=== PATIENT | male | born 1930 | race African-American/Black ===

== ENCOUNTER 2017-03-01 23:03 | Inpatient (IN) | payer MEDICARE, MEDICAID ==
[~2017-03-01] VITALS: Ht 175.3 cm; Wt 68.9 kg
[2017-03-01 23:10] VITALS: BP 119/71
--- NOTE | 2017-03-02 00:02 | Emergency Room Report ---
History of Present Illness General Chief Complaint: Fever Source: Medical Record Present Illness HPI This is an 86-year-old male with multiple medical problem. [facility] a [facility]. He was brought in for chief complaint of fever and abdominal pain with nausea vomiting. Onset today. History is from the [facility] note. Patient has history of dementia so history is limited. He received Tylenol for his fever. No mention of diarrhea. Allergies: Coded Allergies: No Known Allergies (Unverified , 03/01/17) Patient History Past Medical History: see triage record, old chart reviewed Past Surgical History: other Pertinent Family History: none Social History: Denies: smoking Immunizations: other Reviewed Nursing Documentation: PMH: Agreed, PSxH: Agreed Nursing Documentation-PMH Hx Hypertension: Yes - Hyperlipidemia Review of Systems Constitutional: Reports: fever Gastrointestinal: Reports: abdominal pain, nausea, vomiting All Other Systems: limited - Secondary to dementia Physical Exam Vital Signs Date Time Temp Pulse Resp B/P (MAP) Pulse Ox O2 Delivery O2 Flow Rate FiO2 03/01/17 22:59 100.0 96 16 119/71 98 Room Air vitals with fever Sp02 EP Interpretation: reviewed, normal General Appearance: well appearing, no apparent distress, alert Head: normocephalic, atraumatic Eyes: bilateral eye PERRL, bilateral eye EOMI ENT: hearing grossly normal, normal pharynx Neck: full range of motion, supple, no meningismus Respiratory: chest non-tender, lungs clear, normal breath sounds Cardiovascular #1: regular rate, rhythm, no murmur Gastrointestinal: normal bowel sounds, non tender, no mass, no organomegaly, no bruit, non-distended Musculoskeletal: back normal, normal range of motion Neurologic: alert Psychiatric: mood/affect normal Skin: warm/dry Medical Decision Making Diagnostic Impression: Primary Impression: Fever Qualified Codes: R50.9 - Fever, unspecified Additional Impressions: SIRS (systemic inflammatory response syndrome) Proteinuria Qualified Codes: R80.9 - Proteinuria, unspecified ER Course Patient presents with a fever and systemic inflammatory response syndrome. No clear source but most likely urine. Initially urine is equivocal. I will go ahead and put him on antibiotics. Mental status. He is at baseline. No evidence of pneumonia, acute abdomen to name a few. Lab Results Impression labs unremarkable EKG Diagnostic Results Rate: normal Rhythm: NSR ST Segments: no acute changes Rhythm Strip Diag. Results Rhythm Strip Time: 00:01 EP Interpretation: yes Rate: 77 Rhythm: NSR, no PVC's, no ectopy Chest X-Ray Diagnostic Results Chest X-Ray Diagnostic Results : Chest X-Ray Ordered: Yes # of Views/Limited/Complete: 1 View Indication: Shortness of Breath EP Interpretation: Yes Interpretation: no consolidation, no effusion, no pneumothorax Impression: No acute disease Electronically Signed by: Electronically signed by Tejas Fagan MD CT/MRI/US Diagnostic Results CT/MRI/US Diagnostic Results : Imaging Test Ordered: CT abdomen and pelvis Impression Read by radiologist. No acute process. Last Vital Signs Date Time Temp Pulse Resp B/P (MAP) Pulse Ox O2 Delivery O2 Flow Rate FiO2 03/01/17 22:59 100.0 96 16 119/71 98 Room Air Status: improved Disposition: ADMITTED INPATIENT Condition: Serious TEJAS FAGAN M.D. Mar 02, 2017 00:02
[2017-03-02 00:03] LABS: BASOPHILS % (AUTO) 1.5 % (0.0-2.0); EOSINOPHILS % (AUTO) 2.7 % (0.0-3.0); HEMATOCRIT 43.3 % (42.0-52.0); HEMOGLOBIN 15.2 G/DL (14.2-18.0); MEAN CORPUSCULAR VOLUME 89 FL (80-99); MONOCYTES % (AUTO) 7.2 % (1.0-10.0); NEUTROPHILS % (AUTO) 56.6 % (45.0-75.0); PLATELET COUNT 319 K/UL (150-450); RED BLOOD COUNT 4.88 M/UL (4.70-6.10); RED CELL DISTRIBUTION WIDTH 13.1 % (11.6-14.8); WHITE BLOOD COUNT 11.3 K/UL (4.8-10.8)
[2017-03-02] MEDS ORDERED: MULTIVITAMINS1 EAC2 ORAL (00:15)
[2017-03-02] MEDS ORDERED: HEPARIN SO5000 UNIT2 SUBQ (00:15)
[2017-03-02] MEDS ORDERED: CLOPIDOGREL75 MG ORAL (00:15)
[2017-03-02] MEDS ORDERED: DEPAKOTE250 MG PO (00:15)
[2017-03-02] MEDS ORDERED: VANCOMYCIN1 GM/2502 IVPB (00:15)
[2017-03-02] MEDS ORDERED: ZOSYN 3.373.375 GM/1 IVPB (00:15)
[2017-03-02] MEDS ORDERED: ASPIR 8181 MG ORAL (00:15)
[2017-03-02] MEDS ORDERED: ALUM-MAG HYDRO360 ML PO (00:15)
[2017-03-02] MEDS ORDERED: PRAVASTATIN SOD20 M1 ORAL (00:15)
[2017-03-02] MEDS ORDERED: PANTOPRAZOLE SO40 MG ORAL (00:15)
[2017-03-02] MEDS ORDERED: DONEPEZIL HCL10 M2 ORAL (00:15)
[2017-03-02] MEDS ORDERED: TYLENOL EXTRA500 MG ORAL ×2 (00:15→05:55)
[2017-03-02] MEDS ORDERED: NAMENDA10 MG ORAL (00:15)
[2017-03-02] MEDS ORDERED: LORAZEPAM0.5 GM IV (00:15)
[2017-03-02] MEDS ORDERED: DOCUSATE SODIU100 MG ORAL (00:15)
[2017-03-02] MEDS ORDERED: ACETYLCYST200 MG/1 M ORAL (00:15)
[2017-03-02 00:30] VITALS: BP 119/48
[2017-03-02 00:43] LABS: BILIRUBIN, URINE 1+ (NEGATIVE); GLUCOSE, URINE (UA) NEGATIVE (NEGATIVE); KETONES,URINE 2+ (NEGATIVE); LEUKOCYTE ESTERASE ,URINE 1+ (NEGATIVE); NITRITE,URINE NEGATIVE (NEGATIVE); PH,URINE 5 (4.5-8.0); PROTEIN,URINE 3+ (NEGATIVE); UROBILINOGEN,URINE 1 MG/DL (0.0-1.0)
[2017-03-02 00:51] LABS: APPEARANCE,URINE SLIGHTLY CLOUDY; COLOR,URINE YELLOW
[2017-03-02] MEDS ORDERED: cefTRIAXone 1 GM in NS 55 ML IVPB ONE (01:45)
[2017-03-02 02:00] VITALS: BP 109/52
[2017-03-02 02:06] LABS: ALANINE AMINOTRANSFERASE 30 U/L (12-78); ALBUMIN 2.5 G/DL (3.4-5.0); ALBUMIN/GLOBULIN RATIO 0.5 (1.0-2.7); ALKALINE PHOSPHATASE 85 U/L (46-116); ANION GAP 11 mmol/L (5-15); ASPARTATE AMINO TRANSFERASE 21 U/L (15-37); BILIRUBIN,TOTAL 0.6 MG/DL (0.2-1.0); BLOOD UREA NITROGEN 1 mg/dL (7-18); CARBON DIOXIDE 26 MMOL/L (21-32); CHLORIDE 107 MMOL/L (98-107); CKMB < 0.5 NG/ML (0.0-3.6); CREATINE KINASE 28 U/L (26-308); CREATININE 1.8 MG/DL (0.55-1.30); POTASSIUM 4.1 MMOL/L (3.5-5.1); SODIUM 143 MMOL/L (136-145)
[2017-03-02 02:15] LABS: CALCIUM 9.4 MG/DL (8.5-10.1)
[2017-03-02 03:00] VITALS: BP 129/85
[2017-03-02] MEDS ORDERED: Acetaminophen 500mg (ES) tab ORAL PRN ×2 (04:45→08:00)
[2017-03-02] MEDS ORDERED: ACETAMINOPHEN325 M1 ORAL (05:55)
[2017-03-02] MEDS ORDERED: MILK OF MA400 MG/51 ORAL (05:57)
[2017-03-02] MEDS ORDERED: LORazepam 1mg tab ORAL PRN (07:45)
[2017-03-02] MEDS ORDERED: Milk of Magnesia 30ml Ud ORAL PRN ×2 (08:00)
[2017-03-02] MEDS ORDERED: Heparin 5000 units/ml inj SUBQ SCH (09:00)
[2017-03-02] MEDS: Docusate 100mg cap ORAL SCH ×2 (09:00→17:20)
[2017-03-02] MEDS ORDERED: Mylanta II UD 30ml ORAL PRN (09:00)
[2017-03-02] MEDS: Heparin 5000 units/ml inj SUBQ SCH ×2 (09:00→20:53)
[2017-03-02] MEDS: Donepezil 10mg tab ORAL SCH (09:00)
[2017-03-02] MEDS: Memantine 10mg tab ORAL SCH (09:00)
[2017-03-02] MEDS: Aspirin EC 81mg tab ORAL SCH (09:00)
--- NOTE | 2017-03-02 09:32 | Diagnostic Imaging Report ---
Indication: Abdominal pain Technique: Spiral acquisitions obtained through the abdomen and pelvis. No oral contrast utilized, per emergency room physician request No IV contrast utilized, per referring physician request.. Multiplanar reconstructions were generated. Total dose length product 630 mGycm. CTDIvol(s) 12 mGy. Dose reduction achieved using automated exposure control Comparison: None Findings: There is extensive colonic diverticulosis. No evidence of diverticulitis. Normal appendix. There is a lower mid abdominal small bowel small bowel anastomosis, associated loops are dilated. No other small bowel distention demonstrated. There is a broad-based umbilical or incisional hernia centrally. No free or loculated intraperitoneal air or fluid. Distal esophagus, stomach, duodenum are unremarkable. There is a small fat-containing left inguinal hernia. The gallbladder contains a gallstone. There is no biliary ductal dilatation. Lack of IV contrast limits assessment of the solid organs. The liver, pancreas, spleen, adrenals right kidney are unremarkable. Left kidney demonstrates a 2 mm nonobstructive upper pole calyceal calculus. No ureteral calculi. No retroperitoneal or mesenteric mass or adenopathy. No pelvic mass or adenopathy. The included lung bases demonstrate some basilar scarring. There are incompletely united subacute appearing left ninth and 10th rib fracture deformities. There are degenerative spondylosis changes. There are atherosclerotic vascular calcifications Impression: No acute abnormality Diverticulosis. No evidence of diverticulitis Evidence of prior small bowel surgery. Focal dilatation at the anastomosis, presumably due to focal altered motility related to the prior bowel resection Cholelithiasis Nonobstructive left upper pole intrarenal calyceal calculus Subacute incompletely healed left rib fractures Other findings as noted, including atherosclerosis, basilar pulmonary parenchymal scarring, degenerative spondylosis, midline incisional/umbilical fat-containing hernias, left inguinal fat-containing hernia This agrees with the preliminary interpretation provided overnight by [facility]. The CT scanner at [facility] is accredited by the [employer] and the scans are performed using protocols designed to limit radiation exposure to as low as reasonably achievable to attain images of sufficient resolution adequate for diagnostic evaluation.
--- NOTE | 2017-03-02 09:38 | Diagnostic Imaging Report ---
Indication: SOB Technique: One view of the chest Comparison: none Findings: Lungs and pleural spaces are clear. Heart size is normal Impression: No acute process
--- NOTE | 2017-03-02 09:38 | Diagnostic Imaging Report ---
Indication: SOB Technique: One view of the chest Comparison: none Findings: Lungs and pleural spaces are clear. Heart size is normal Impression: No acute process
--- NOTE | 2017-03-02 09:38 | Diagnostic Imaging Report ---
Indication: SOB Technique: One view of the chest Comparison: none Findings: Lungs and pleural spaces are clear. Heart size is normal Impression: No acute process
[2017-03-02 12:00] VITALS: BP 132/88
[2017-03-02 16:00] VITALS: BP 128/72
[2017-03-02 21:00] VITALS: BP 135/59
[2017-03-02] MEDS ORDERED: cefTRIAXone 1 GM in D5W 55 ML IVPB SCH (22:00)
--- NOTE | 2017-03-02 23:00 | History and Physical Report ---
DATE OF ADMISSION: 03/02/2017 CHIEF COMPLAINT: Fever. HISTORY OF PRESENT ILLNESS: This is an 86-year-old male, admitted from [facility]. The patient developed a fever in the senior living. 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 The patient just returned from another admission several weeks ago at [facility] where he had failure to thrive and poor oral intake. He was noted to have severe peripheral vascular disease and left lower extremity cellulitis. The patient underwent the angioplasty to his left femoral arterial system with good results. 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 3. Deafness. 4. Hyperlipidemia. MEDICATIONS: Tylenol p.r.n., baby aspirin, Plavix, Depakote, sodium docusate, Aricept, subcutaneous heparin, lorazepam p.r.n., magnesium oxide, Namenda, multivitamins, Protonix, Zosyn, pravastatin, and vancomycin. ALLERGIES: No known drug allergies. SOCIAL HISTORY: Unable to obtain secondary to mental status. FAMILY HISTORY: Unable to obtain secondary to mental status. REVIEW OF SYSTEMS: Unable to obtain secondary to mental status. PHYSICAL EXAMINATION: GENERAL: This is an elderly male, who is in no acute distress. VITAL SIGNS: Blood pressure 129/85, pulse 76 and regular, respirations 14, and temperature initially 100 degrees and later on today 98.7 degrees. HEENT: Head is normocephalic and atraumatic. Pupils are equal, round, and reactive to light and accommodation consensually. NECK: Supple. Trachea midline. There was no lymphadenopathy or thyromegaly. LUNGS: Clear to auscultation and percussion. HEART: Regular rate and rhythm without rubs, murmurs, or gallops. ABDOMEN: Soft and nontender. Bowel sounds were active. EXTREMITIES: No clubbing. He has bilateral lower extremity edema. NEUROLOGICAL: He is confused. He is extremely hard of hearing. There are no gross lateralizing signs. LABORATORY AND ANCILLARY DATA: White count 11,300, otherwise, within normal limits. Serum chemistry, creatinine 1.8. Albumin 2.5. Urinalysis, 3+ protein, otherwise unremarkable. ASSESSMENT: Fever, unknown etiology. Of note is that a CT scan of abdomen shows gallstones. PLAN: 1. Broad-spectrum IV antibiotics. 2. Rule out C. difficile colitis. 3. HIDA scan. 4. Consider ID consult. Jonathan Mendez M.D. DR: Aniya JOB#: [id number] CC:
--- NOTE | 2017-03-02 23:00 | History and Physical Report ---
DATE OF ADMISSION: 03/02/2017 CHIEF COMPLAINT: Fever. HISTORY OF PRESENT ILLNESS: This is an 86-year-old male, admitted from [facility]. The patient developed a fever in the correction. 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 The patient just returned from another admission several weeks ago at [facility] where he had failure to thrive and poor oral intake. He was noted to have severe peripheral vascular disease and left lower extremity cellulitis. The patient underwent the angioplasty to his left femoral arterial system with good results. 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 3. Deafness. 4. Hyperlipidemia. MEDICATIONS: Tylenol p.r.n., baby aspirin, Plavix, Depakote, sodium docusate, Aricept, subcutaneous heparin, lorazepam p.r.n., magnesium oxide, Namenda, multivitamins, Protonix, Zosyn, pravastatin, and vancomycin. ALLERGIES: No known drug allergies. SOCIAL HISTORY: Unable to obtain secondary to mental status. FAMILY HISTORY: Unable to obtain secondary to mental status. REVIEW OF SYSTEMS: Unable to obtain secondary to mental status. PHYSICAL EXAMINATION: GENERAL: This is an elderly male, who is in no acute distress. VITAL SIGNS: Blood pressure 129/85, pulse 76 and regular, respirations 14, and temperature initially 100 degrees and later on today 98.7 degrees. HEENT: Head is normocephalic and atraumatic. Pupils are equal, round, and reactive to light and accommodation consensually. NECK: Supple. Trachea midline. There was no lymphadenopathy or thyromegaly. LUNGS: Clear to auscultation and percussion. HEART: Regular rate and rhythm without rubs, murmurs, or gallops. ABDOMEN: Soft and nontender. Bowel sounds were active. EXTREMITIES: No clubbing. He has bilateral lower extremity edema. NEUROLOGICAL: He is confused. He is extremely hard of hearing. There are no gross lateralizing signs. LABORATORY AND ANCILLARY DATA: White count 11,300, otherwise, within normal limits. Serum chemistry, creatinine 1.8. Albumin 2.5. Urinalysis, 3+ protein, otherwise unremarkable. ASSESSMENT: Fever, unknown etiology. Of note is that a CT scan of abdomen shows gallstones. PLAN: 1. Broad-spectrum IV antibiotics. 2. Rule out C. difficile colitis. 3. HIDA scan. 4. Consider ID consult. Jonathan Mendez M.D. DR: Aniya JOB#: [id number] CC:
[2017-03-03] VITALS: BP 136/60
[2017-03-03 04:00] VITALS: BP 135/65
[2017-03-03 08:00] VITALS: BP 109/53
[2017-03-03] MEDS: Memantine 10mg tab ORAL SCH (08:13)
[2017-03-03] MEDS: Docusate 100mg cap ORAL SCH ×2 (08:14→17:31)
[2017-03-03] MEDS: Donepezil 10mg tab ORAL SCH (08:14)
[2017-03-03] MEDS: Aspirin EC 81mg tab ORAL SCH (08:14)
[2017-03-03] MEDS: Heparin 5000 units/ml inj SUBQ SCH ×2 (08:19→20:59)
[2017-03-03] MEDS ORDERED: Tubing IV Secondary IV ONE (09:34)
[2017-03-03] MEDS ORDERED: NS 275ml ONE (09:34)
[2017-03-03] MEDS ORDERED: Vancomycin 1250mg/D5W 250ml IVPB ONE (11:00)
--- NOTE | 2017-03-03 11:20 | Infectious Diseases Prog Note ---
Assessment/Plan Assessment/Plan Full consult dictated: A) 1) bilateral leg cellulitis - R > L 2) possible sepsis, sirs, leukocytosis and fevers 3) pmh noted 4) allergies - negative P) 1) vancomycin, cefepime 2) check labs, bc 3) thank you Subjective Allergies: Coded Allergies: No Known Allergies (Unverified , 03/01/17) Objective Vital Signs Last 24 Hour Vital Signs Date Time Temp Pulse Resp B/P (MAP) Pulse Ox O2 Delivery O2 Flow Rate FiO2 03/03/17 08:00 97.9 87 20 109/53 100 Room Air 03/03/17 04:00 97.9 90 20 135/65 99 Room Air 03/03/17 00:00 98.1 89 20 136/60 98 Room Air 03/02/17 21:00 98.4 93 20 135/59 99 Room Air 03/02/17 16:00 98.4 78 22 128/72 98 Room Air 03/02/17 12:00 98.4 82 20 132/88 98 Room Air Height (Feet): 5 Height (Inches): 9.00 Weight (Pounds): 152 Microbiology Date/Time Source Procedure Growth Status 03/01/17 23:45 Blood Blood Culture - Preliminary NO GROWTH AFTER 24 HOURS Resulted 03/01/17 23:30 Blood Blood Culture - Preliminary NO GROWTH AFTER 24 HOURS Resulted Current Medications Medications (Trade) Dose Ordered Sig/Pao Route PRN Reason Start Time Stop Time Status Last Admin Dose Admin Acetaminophen (Tylenol) 500 mg Q4H PRN ORAL Mild Pain (Pain Scale 1-3) 03/02/17 08:00 04/01/17 07:59 Acetaminophen (Tylenol) 650 mg Q4H PRN ORAL Moderate Pain/Temp > 100.5 03/02/17 08:00 04/01/17 07:59 Al Hydroxide/Mg Hydroxide (Mylanta II) 30 ml Q6H PRN ORAL DYSPEPSIA/GI DISTRESS 03/02/17 09:00 04/01/17 08:59 Aspirin (Ecotrin) 81 mg DAILY ORAL 03/02/17 09:00 04/01/17 08:59 03/03/17 08:14 Cefepime HCl 2 gm/ Dextrose 110 ml @ 220 mls/hr Q24H IVPB 03/03/17 10:30 03/10/17 10:29 Clopidogrel Bisulfate (Plavix) 75 mg DAILY ORAL 03/02/17 09:00 04/01/17 08:59 03/03/17 08:14 Divalproex Sodium (Depakote) 250 mg Q12HR ORAL 03/02/17 09:00 04/01/17 08:59 03/03/17 08:15 Docusate Sodium (Colace) 100 mg TWICE A DAY ORAL 03/02/17 09:00 04/01/17 08:59 03/03/17 08:14 Donepezil HCl (Aricept) 10 mg DAILY ORAL 03/02/17 09:00 04/01/17 08:59 03/03/17 08:14 Heparin Sodium (Porcine) (Heparin 5000 units/ml) 5,000 units EVERY 12 HOURS SUBQ 03/02/17 09:00 04/01/17 08:59 03/03/17 08:19 Lorazepam (Ativan) 1 mg Q6H PRN ORAL For Anxiety 03/02/17 07:45 03/09/17 07:44 Magnesium Hydroxide (Mom) 30 ml Q4H PRN ORAL CONSTIPATION 03/02/17 08:00 04/01/17 07:59 Memantine (Namenda) 10 mg DAILY ORAL 03/02/17 09:00 04/01/17 08:59 03/03/17 08:13 Multivitamins (Multivitamins) 1 tab DAILY ORAL 03/02/17 09:00 04/01/17 08:59 03/03/17 08:14 Pantoprazole (Protonix) 40 mg DAILY ORAL 03/02/17 09:00 04/01/17 08:59 03/03/17 08:14 Pravastatin Sodium (Pravachol) 10 mg BEDTIME ORAL 03/02/17 21:00 04/01/17 20:59 03/02/17 20:51 Vancomycin HCl (Vanco rx to dose) 1 ea DAILY PRN MISC Per rx protocol 03/03/17 09:15 04/02/17 09:14 Vancomycin HCl/ Dextrose 250 ml @ 166.667 mls/hr ONCE ONCE IVPB 03/03/17 11:00 03/03/17 12:29 ZITA PLASENCIA Mar 03, 2017 11:20
[2017-03-03 11:27] VITALS: BP 123/66
[2017-03-03] MEDS: Cefepime HCl 2 GM in D5W 110 ML IVPB SCH (11:30)
--- NOTE | 2017-03-03 13:06 | General Progress Note ---
Assessment/Plan Assessment/Plan B LE cellulitis. This is the source of infection. Podiadtry to advise re portal of entry. ID to advise. Subjective Allergies: Coded Allergies: No Known Allergies (Unverified , 03/01/17) Subjective Confused Objective Last 24 Hour Vital Signs Date Time Temp Pulse Resp B/P (MAP) Pulse Ox O2 Delivery O2 Flow Rate FiO2 03/03/17 11:27 97.9 82 20 123/66 100 Room Air 03/03/17 08:00 97.9 87 20 109/53 100 Room Air 03/03/17 04:00 97.9 90 20 135/65 99 Room Air 03/03/17 00:00 98.1 89 20 136/60 98 Room Air 03/02/17 21:00 98.4 93 20 135/59 99 Room Air 03/02/17 16:00 98.4 78 22 128/72 98 Room Air Height (Feet): 5 Height (Inches): 9.00 Weight (Pounds): 152 Objective CV RR Lungs CTA Abd SNT. Bs + E B Edema ++ cellulitis JON PURVIS Mar 03, 2017 13:06
[2017-03-03 16:00] VITALS: BP 134/64
--- NOTE | 2017-03-03 17:51 | General Progress Note ---
Progress Note Progress Note Patient seen and examined Consult dictated #[id number] LESLY AGUIRRE Mar 03, 2017 17:51
--- NOTE | 2017-03-03 17:51 | General Progress Note ---
Progress Note Progress Note Patient seen and examined Consult dictated #[id number] LESLY AGUIRRE Mar 03, 2017 17:51
--- NOTE | 2017-03-03 17:51 | General Progress Note ---
Progress Note Progress Note Patient seen and examined Consult dictated #[id number] LESLY AGUIRRE Mar 03, 2017 17:51
--- NOTE | 2017-03-03 18:35 | Cardiology Report ---
APPROVED REPORT EKG Measurement Heart [id number] [place] 142P78 [id number] Normal sinus rhythm Normal ECG
--- NOTE | 2017-03-03 18:35 | Cardiology Report ---
APPROVED REPORT EKG Measurement Heart [id number] 142P78 [id number] Normal sinus rhythm Normal ECG
--- NOTE | 2017-03-03 18:35 | Cardiology Report ---
APPROVED REPORT EKG Measurement Heart [id number] 142P78 [id number] Normal sinus rhythm Normal ECG
[2017-03-03 20:00] VITALS: BP 145/71
--- NOTE | 2017-03-03 20:15 | Consultation ---
DATE OF CONSULTATION: 03/02/2017 VASCULAR SURGERY CONSULTATION CONSULTING PHYSICIAN: Renato Vieira M.D. REFERRING PHYSICIAN: Jonathan Purvis M.D. REASON FOR CONSULTATION: Right lower extremity cellulitis. HISTORY OF PRESENT ILLNESS: This is an 86-year-old male who is well known to our vascular service. 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 The patient has undergone a successful left leg percutaneous revascularization last month with excellent results. The patient now presents to [facility] with right leg cellulitis and pain. The patient does have venous arterial insufficiency with history of stasis dermatitis as well as arterial occlusive disease. All the history is obtained from the medical records. The patient is demented and psychotic. PAST MEDICAL HISTORY: As above, history of hypertension, organic brain syndrome, psychosis, deafness, hyperlipidemia, mixed venous arterial insufficiency, and prior history of left leg percutaneous revascularization. MEDICATIONS: See attached MAR. ALLERGIES: No known drug allergies. SOCIAL HISTORY: Unobtainable. He is a long term resident. His power of transactional attorney is his sister and his granddaughter is nurse at [employer]. FAMILY HISTORY: Unremarkable. REVIEW OF SYSTEMS: Unobtainable due to altered mental status. PHYSICAL EXAMINATION: GENERAL: The patient is awake and alert, but confused. VITAL SIGNS: he is afebrile at 98. degrees, T-max is 100 degrees, heart rate 76, blood pressure 129/85, and respirations 16. NECK: He has palpable radial pulses. No carotid bruits. LUNGS: Clear to auscultation. HEART: Regular. ABDOMEN: Soft and nontender. EXTREMITIES: He has palpable femoral pulses, stronger left popliteal pulse, stronger left foot Doppler signals and palpable left DP pulse. Right foot is warm, has weaker Dopplers. He does have right lower extremity cellulitis in the anterior lower leg with some tenderness. There is no evidence of open ulceration. LABORATORY AND DIAGNOSTIC DATA: Revealed a WBC of 9.3. Creatinine is 1.8. IMPRESSION: 1. Right lower extremity cellulitis with history of mixed arteriovenous insufficiency with leukocytosis and low-grade fever. 2. History of dementia. 3. Psychosis. 4. Organic brain syndrome. 5. History of hypertension and renal failure. 6. Prior history of left leg successful percutaneous revascularization with resolution of symptoms. RECOMMENDATION: 1. Antibiotics per Infectious Disease service. 2. Continue DVT and decubitus precautions. 3. We will obtain lower extremity duplex. Once the patient is medically optimized and cleared, the patient will require contralateral right leg revascularization and angiography as well. The above is discussed at length with the patient's nurse. Renato Vieira M.D. DR: SIRIA JOB#: [id number] CC: Renato Vieira M.D.; Fax#: [phone] JONATHAN PURVIS M.D. ; FAX#: [phone] [facility]
--- NOTE | 2017-03-03 20:15 | Consultation ---
DATE OF CONSULTATION: 03/02/2017 VASCULAR SURGERY CONSULTATION CONSULTING PHYSICIAN: Renato Vieira M.D. REFERRING PHYSICIAN: Jonathan Purvis M.D. REASON FOR CONSULTATION: Right lower extremity cellulitis. HISTORY OF PRESENT ILLNESS: This is an 86-year-old male who is well known to our vascular service. 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 The patient has undergone a successful left leg percutaneous revascularization last month with excellent results. The patient now presents to [facility] with right leg cellulitis and pain. The patient does have venous arterial insufficiency with history of stasis dermatitis as well as arterial occlusive disease. All the history is obtained from the medical records. The patient is demented and psychotic. PAST MEDICAL HISTORY: As above, history of hypertension, organic brain syndrome, psychosis, deafness, hyperlipidemia, mixed venous arterial insufficiency, and prior history of left leg percutaneous revascularization. MEDICATIONS: See attached MAR. ALLERGIES: No known drug allergies. SOCIAL HISTORY: Unobtainable. He is a [facility] resident. His power of mergers and acquisitions attorney is his sister and his granddaughter is nurse at [employer]. FAMILY HISTORY: Unremarkable. REVIEW OF SYSTEMS: Unobtainable due to altered mental status. PHYSICAL EXAMINATION: GENERAL: The patient is awake and alert, but confused. VITAL SIGNS: he is afebrile at 98. degrees, T-max is 100 degrees, heart rate 76, blood pressure 129/85, and respirations 16. NECK: He has palpable radial pulses. No carotid bruits. LUNGS: Clear to auscultation. HEART: Regular. ABDOMEN: Soft and nontender. EXTREMITIES: He has palpable femoral pulses, stronger left popliteal pulse, stronger left foot Doppler signals and palpable left DP pulse. Right foot is warm, has weaker Dopplers. He does have right lower extremity cellulitis in the anterior lower leg with some tenderness. There is no evidence of open ulceration. LABORATORY AND DIAGNOSTIC DATA: Revealed a WBC of 9.3. Creatinine is 1.8. IMPRESSION: 1. Right lower extremity cellulitis with history of mixed arteriovenous insufficiency with leukocytosis and low-grade fever. 2. History of dementia. 3. Psychosis. 4. Organic brain syndrome. 5. History of hypertension and renal failure. 6. Prior history of left leg successful percutaneous revascularization with resolution of symptoms. RECOMMENDATION: 1. Antibiotics per Infectious Disease service. 2. Continue DVT and decubitus precautions. 3. We will obtain lower extremity duplex. Once the patient is medically optimized and cleared, the patient will require contralateral right leg revascularization and angiography as well. The above is discussed at length with the patient's nurse. Renato Vieira M.D. DR: SIRIA JOB#: [id number] CC: Renato Vieira M.D.; Fax#: [phone] JONATHAN PURVIS M.D. ; FAX#: [phone] [facility] [facility]ITAL[facility]
--- NOTE | 2017-03-03 20:15 | Consultation ---
DATE OF CONSULTATION: 03/02/2017 VASCULAR SURGERY CONSULTATION CONSULTING PHYSICIAN: Renato Vieira M.D. REFERRING PHYSICIAN: Jonathan Purvis M.D. REASON FOR CONSULTATION: Right lower extremity cellulitis. HISTORY OF PRESENT ILLNESS: This is an 86-year-old male who is well known to our vascular service. 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 The patient has undergone a successful left leg percutaneous revascularization last month with excellent results. The patient now presents to [facility] with right leg cellulitis and pain. The patient does have venous arterial insufficiency with history of stasis dermatitis as well as arterial occlusive disease. All the history is obtained from the medical records. The patient is demented and psychotic. PAST MEDICAL HISTORY: As above, history of hypertension, organic brain syndrome, psychosis, deafness, hyperlipidemia, mixed venous arterial insufficiency, and prior history of left leg percutaneous revascularization. MEDICATIONS: See attached MAR. ALLERGIES: No known drug allergies. SOCIAL HISTORY: Unobtainable. He is a care home resident. His power of sports attorney is his sister and his granddaughter is nurse at [employer]. FAMILY HISTORY: Unremarkable. REVIEW OF SYSTEMS: Unobtainable due to altered mental status. PHYSICAL EXAMINATION: GENERAL: The patient is awake and alert, but confused. VITAL SIGNS: he is afebrile at 98. degrees, T-max is 100 degrees, heart rate 76, blood pressure 129/85, and respirations 16. NECK: He has palpable radial pulses. No carotid bruits. LUNGS: Clear to auscultation. HEART: Regular. ABDOMEN: Soft and nontender. EXTREMITIES: He has palpable femoral pulses, stronger left popliteal pulse, stronger left foot Doppler signals and palpable left DP pulse. Right foot is warm, has weaker Dopplers. He does have right lower extremity cellulitis in the anterior lower leg with some tenderness. There is no evidence of open ulceration. LABORATORY AND DIAGNOSTIC DATA: Revealed a WBC of 9.3. Creatinine is 1.8. IMPRESSION: 1. Right lower extremity cellulitis with history of mixed arteriovenous insufficiency with leukocytosis and low-grade fever. 2. History of dementia. 3. Psychosis. 4. Organic brain syndrome. 5. History of hypertension and renal failure. 6. Prior history of left leg successful percutaneous revascularization with resolution of symptoms. RECOMMENDATION: 1. Antibiotics per Infectious Disease service. 2. Continue DVT and decubitus precautions. 3. We will obtain lower extremity duplex. Once the patient is medically optimized and cleared, the patient will require contralateral right leg revascularization and angiography as well. The above is discussed at length with the patient's nurse. Renato Vieira M.D. DR: SIRIA JOB#: [id number] CC: Renato Vieira M.D.; Fax#: [phone] JONATHAN PURVIS M.D. ; FAX#: [phone] [facility]
--- NOTE | 2017-03-03 21:45 | Consultation ---
DATE OF CONSULTATION: 03/03/2017 INFECTIOUS DISEASES CONSULTATION ATTENDING PHYSICIAN: Jonathan Mendez M.D. REASON FOR CONSULTATION: Bilateral leg cellulitis, right greater than left, possible sepsis and SIRS, fevers, and leukocytosis. The patient's chief complaint coming into the hospital is sepsis. HISTORY OF PRESENT ILLNESS: This is an 86-year-old male who has a history of organic brain syndrome, is hard of hearing, and the patient is not a very good historian. The patient presents from an outside facility, who lives in half-way with poor oral intake and failure to thrive. The patient was noted to have leukocytosis and fevers and elevated heart rate over 90 and respiratory rate of 20, possible sepsis. Clinically, the patient has bilateral leg cellulitis, especially on the right leg. Infectious Diseases consultation requested. The patient was placed on vancomycin and cefepime. The patient does also have an elevated creatinine. MAR was noted. Orders noted. Notes were reviewed. Urinalysis only had 0-2 white blood cells, and chest x-ray showed no acute process. Also, the patient had CT scan of the abdomen and pelvis, which showed diverticulosis, but no diverticulitis, history of cholelithiasis. PAST MEDICAL HISTORY: The patient's medical history includes the following. The patient has a past medical history of organic brain syndrome, history of hypertension, and hypertensive cardiovascular disease. He has deafness, hyperlipidemia. He has elevated creatinine at this time. He has possible acute kidney injury versus chronic kidney disease. No history of diabetes mentioned. Also, hypertension and hyperlipidemia. Please see past medical history in medical order. MEDICATIONS: Upon reviewing the MAR, he is on the following medications. He is on vancomycin and cefepime. He is on pravastatin. He is on heparin. He is on aspirin. He is on Plavix, divalproex, Colace, Aricept, Mylanta. He is on Namenda, multivitamins, Protonix, Tylenol, magnesium hydroxide, and Ativan. ALLERGIES: No known drug or antibiotic allergies. SOCIAL HISTORY: Negative for smoking, alcohol, or drug abuse. FAMILY HISTORY: Noncontributory. Negative for exposure to tuberculosis or cancer. REVIEW OF SYSTEMS: CONSTITUTIONAL: Denies weakness or fatigue. He is hard of hearing. He has organic brain syndrome. He did come in with fevers. No chills noted at this time. HEAD AND NECK: No head pain. No neck pain. No neck stiffness. CARDIAC: No chest pain. GASTROINTESTINAL: No nausea, vomiting, or diarrhea. GENITOURINARY: No Zamarripa. PULMONARY: No significant congestion, short of breath, secretions, or hemoptysis. SKIN: No rash or itching. EXTREMITIES: He has bilateral leg swelling and pain. NEUROLOGIC: No seizures. PHYSICAL EXAMINATION: GENERAL: Alert and responsive. He is hard of hearing. VITAL SIGNS: Temperature is 97.9 degrees, pulse rate 87, respiratory rate 20, blood pressure 109/53, respiratory rate has been as high as 22, pulse rate has been as high as 96, and temperature has been high as 100 degrees. HEAD AND NECK: Oral exam, no thrush. Eye exam, no icterus. Normocephalic. No facial droop. NECK: Supple. No neck stiffness. HEART: Regular. No obvious gallop or murmur. LUNGS: Clear bilaterally. No rhonchi or rales. ABDOMEN: Soft. Positive bowel sounds. Nontender. SKIN: No rash. MUSCULOSKELETAL: No effusion. Bilateral legs have redness and warmth and swelling, especially on the right versus left. PERIPHERAL VASCULAR: No cyanosis. GENITOURINARY: No Zamarripa. LINES: IV sites are without phlebitis. No CVA tenderness. NEUROLOGIC: Awake, alert, and responsive. LABORATORY AND DIAGNOSTIC DATA: Creatinine 1.8. White count 11.3, hemoglobin 15.2. UA has 0-2 white blood cells. Chest x-ray shows no pneumonia. CT scan of the abdomen and pelvis showed diverticulosis without diverticulitis. No abscess mentioned. Cultures are pending including blood cultures. ASSESSMENT AND PLAN: 1. The patient has bilateral leg cellulitis on exam. Clinically, he has warmth and redness and swelling of both legs, especially the right. The patient has possible sepsis secondary to leg cellulitis with an elevated white count, fevers, and also systemic inflammatory response syndrome criteria. Continue vancomycin and cefepime. Check blood cultures and follow labs. Watch creatinine closely on vancomycin. Continue vancomycin and cefepime for bilateral leg cellulitis for now. 2. Elevated creatinine. 3. Hemoglobin stable. 4. Deafness. 5. Organic brain syndrome. 6. Hypertension. 7. Hypertensive heart disease. 8. Hyperlipidemia. 9. No allergies. 10. Social history negative. 11. MAR was noted. 12. Case discussed with RN. 13. Family history is noncontributory. 14. Continue treatment per Dr. Mendez and consultants. 15. Skin care protocol. 16. Notes and records were noted. 17. Orders were entered and noted. Griffin Kamara M.D. DR: JAIRO JOB#: [id number] CC:
[2017-03-04] VITALS: BP 138/69
[2017-03-04 04:00] VITALS: BP 129/64
--- NOTE | 2017-03-04 08:15 | Consultation ---
Consult Note Assessment/Plan A/ 1) Cellulitis RLE 2) PVD 3) Edema 4) Skin dystrophy P/ 1) No open wounds noted. No surgical intervention 2) Seen by [facility] surgery. Recs appreciated 3) Compression contraindicated at this time 4) Will prescribe Econazole cream daily to RLE to help with skin dystrophy possible tinea infection Thank you Dr Mendez. Edmond Ayers DPM Mar 04, 2017 08:15
--- NOTE | 2017-03-04 08:15 | Consultation ---
Consult Note Assessment/Plan A/ 1) Cellulitis RLE 2) PVD 3) Edema 4) Skin dystrophy P/ 1) No open wounds noted. No surgical intervention 2) Seen by [facility] surgery. Recs appreciated 3) Compression contraindicated at this time 4) Will prescribe Econazole cream daily to RLE to help with skin dystrophy possible tinea infection Thank you Dr Mendez. Edmond Ayers DPM Mar 04, 2017 08:15
--- NOTE | 2017-03-04 08:15 | Consultation ---
Consult Note Assessment/Plan A/ 1) Cellulitis RLE 2) PVD 3) Edema 4) Skin dystrophy P/ 1) No open wounds noted. No surgical intervention 2) Seen by [facility] surgery. Recs appreciated 3) Compression contraindicated at this time 4) Will prescribe Econazole cream daily to RLE to help with skin dystrophy possible tinea infection Thank you Dr Mendez. Edmond Ayers DPM Mar 04, 2017 08:15
[2017-03-04 08:17] VITALS: BP 119/63
[2017-03-04] MEDS ORDERED: Morphine Sulfate 4mg/ml Inj IVP PRN (09:00)
[2017-03-04] MEDS: Donepezil 10mg tab ORAL SCH (11:13)
[2017-03-04] MEDS: Docusate 100mg cap ORAL SCH ×2 (11:13→17:58)
[2017-03-04] MEDS: Aspirin EC 81mg tab ORAL SCH (11:14)
[2017-03-04] MEDS: Memantine 10mg tab ORAL SCH (11:14)
[2017-03-04 11:15] LABS: BASOPHILS % (AUTO) 1.1 % (0.0-2.0); EOSINOPHILS % (AUTO) 13.8 % (0.0-3.0); HEMATOCRIT 31.8 % (42.0-52.0); HEMOGLOBIN 10.3 G/DL (14.2-18.0); LYMPHOCYTES % (AUTO) 23.5 % (20.0-45.0); MEAN CORPUSCULAR VOLUME 92 FL (80-99); MONOCYTES % (AUTO) 8.1 % (1.0-10.0); NEUTROPHILS % (AUTO) 53.4 % (45.0-75.0); PLATELET COUNT 192 K/UL (150-450); RED BLOOD COUNT 3.44 M/UL (4.70-6.10); RED CELL DISTRIBUTION WIDTH 14.4 % (11.6-14.8); WHITE BLOOD COUNT 4.7 K/UL (4.8-10.8)
--- NOTE | 2017-03-04 11:16 | Diagnostic Imaging Report ---
Indication: ABD DIST Technique: IV administration 5.4 mCi 99M technetium mebrofenin. Serial images obtained over the abdomen Comparison: Reference made to CT scan 03/01/2017 Findings: Prompt hepatic tracer uptake. Extrahepatic bile ducts are visible at 10 minutes. Tracer begins superior the gallbladder at 19 minutes. Tracer seen in the duodenum at 28 minutes Impression: Negative. No evidence of cystic duct or common bile duct obstruction
[2017-03-04] MEDS: Heparin 5000 units/ml inj SUBQ SCH ×2 (11:17→20:36)
--- NOTE | 2017-03-04 11:18 | Diagnostic Imaging Report ---
APPROVED REPORT CPT Code: 94609 Symptoms Claudication : Bilaterally BILATERAL: Common femoral artery waveform analysis is within normal limits at rest. Color flow duplex sonography reveals patency of the superficial femoral, popliteal, and tibial arteries, there is no evidence of stenosis or occlusion within these segments. Doppler tibial artery waveform analysis is within normal limits, bilaterally. There is no evidence of significant arterial occlusive disease, bilaterally.
--- NOTE | 2017-03-04 11:18 | Diagnostic Imaging Report ---
APPROVED REPORT CPT Code: 38628 Symptoms Claudication : Bilaterally BILATERAL: Common femoral artery waveform analysis is within normal limits at rest. Color flow duplex sonography reveals patency of the superficial femoral, popliteal, and tibial arteries, there is no evidence of stenosis or occlusion within these segments. Doppler tibial artery waveform analysis is within normal limits, bilaterally. There is no evidence of significant arterial occlusive disease, bilaterally.
--- NOTE | 2017-03-04 11:18 | Diagnostic Imaging Report ---
APPROVED REPORT CPT Code: 86091 Symptoms Claudication : Bilaterally BILATERAL: Common femoral artery waveform analysis is within normal limits at rest. Color flow duplex sonography reveals patency of the superficial femoral, popliteal, and tibial arteries, there is no evidence of stenosis or occlusion within these segments. Doppler tibial artery waveform analysis is within normal limits, bilaterally. There is no evidence of significant arterial occlusive disease, bilaterally.
[2017-03-04] MEDS: Econazole 1% Cream 15gm TOPIC SCH (11:19)
--- NOTE | 2017-03-04 11:19 | Diagnostic Imaging Report ---
APPROVED REPORT CPT Code: 98217 Present Symptoms Lower Extremity Pain: Bilateral BILATERAL: Imaging reveals a patent deep venous system bilaterally. There is no evidence of thrombus within the femoral, popliteal or tibial segments. The greater saphenous veins are also within normal limits. Doppler indicates normal spontaneous flow within these segments.
--- NOTE | 2017-03-04 11:19 | Diagnostic Imaging Report ---
APPROVED REPORT CPT Code: 29743 Present Symptoms Lower Extremity Pain: Bilateral BILATERAL: Imaging reveals a patent deep venous system bilaterally. There is no evidence of thrombus within the femoral, popliteal or tibial segments. The greater saphenous veins are also within normal limits. Doppler indicates normal spontaneous flow within these segments.
--- NOTE | 2017-03-04 11:19 | Diagnostic Imaging Report ---
APPROVED REPORT CPT Code: 98180 Present Symptoms Lower Extremity Pain: Bilateral BILATERAL: Imaging reveals a patent deep venous system bilaterally. There is no evidence of thrombus within the femoral, popliteal or tibial segments. The greater saphenous veins are also within normal limits. Doppler indicates normal spontaneous flow within these segments.
[2017-03-04] MEDS: Cefepime HCl 2 GM in D5W 110 ML IVPB SCH (11:21)
[2017-03-04 11:45] LABS: ANION GAP 4 mmol/L (5-15); BLOOD UREA NITROGEN 8 mg/dL (7-18); CALCIUM 8.8 MG/DL (8.5-10.1); CARBON DIOXIDE 29 MMOL/L (21-32); CHLORIDE 103 MMOL/L (98-107); CREATININE 1.2 MG/DL (0.55-1.30); POTASSIUM 3.9 MMOL/L (3.5-5.1); SODIUM 136 MMOL/L (136-145)
[2017-03-04 11:52] VITALS: BP 136/58
[2017-03-04] MEDS ORDERED: Vancomycin 1gm/D5W 275ml IVPB ONE ×2 (13:00)
--- NOTE | 2017-03-04 13:00 | General Progress Note ---
Assessment/Plan Assessment/Plan B LE cellulitis. This is the source of infection. On IV Abx. Seen by Vasc Sx, ID and Podiatry. Stable for DC to SNF. Subjective Allergies: Coded Allergies: No Known Allergies (Unverified , 03/01/17) Subjective Confused Objective Last 24 Hour Vital Signs Date Time Temp Pulse Resp B/P (MAP) Pulse Ox O2 Delivery O2 Flow Rate FiO2 03/04/17 11:52 97.8 71 20 136/58 96 Room Air 03/04/17 08:17 98.2 65 20 119/63 96 Room Air 03/04/17 04:00 97.7 72 18 129/64 99 Room Air 03/04/17 00:00 97.6 83 18 138/69 100 Room Air 03/03/17 20:00 97.5 83 18 145/71 100 Room Air 03/03/17 16:00 97.5 84 18 134/64 100 Room Air Intake and Output 03/04/17 03/05/17 19:00 07:00 # Voids 1 Laboratory Tests 03/04/17 10:50: Sodium Level 136, Potassium Level 3.9, Chloride Level 103, Carbon Dioxide Level 29, Anion Gap 4L, Blood Urea Nitrogen 8, Creatinine 1.2, Estimat Glomerular Filtration Rate , Glucose Level 86, Calcium Level 8.8 03/04/17 11:00: White Blood Count 4.7L, Red Blood Count 3.44L, Hemoglobin 10.3L, Hematocrit 31.8L, Mean Corpuscular Volume 92, Mean Corpuscular Hemoglobin 30.0, Mean Corpuscular Hemoglobin Concent 32.4, Red Cell Distribution Width 14.4, Platelet Count 192, Mean Platelet Volume 7.7, Neutrophils (%) (Auto) 53.4, Lymphocytes (% ) (Auto) 23.5, Monocytes (%) (Auto) 8.1, Eosinophils (%) (Auto) 13.8H, Basophils (%) (Auto) 1.1, Random Vancomycin Level 4.8 Height (Feet): 5 Height (Inches): 9.00 Weight (Pounds): 152 Objective CV RR Lungs CTA Abd SNT. Bs + E B Edema ++ cellulitis JON PURVIS Mar 04, 2017 13:00
[2017-03-04 16:03] VITALS: BP 125/65
--- NOTE | 2017-03-04 18:00 | Consultation ---
DATE OF CONSULTATION: 03/04/2017 REQUESTING PHYSICIAN: Jonathan Mendez M.D. CONSULTING PHYSICIAN: Edmond Lovell D.P.M. REASON FOR CONSULTATION: Recurrent cellulitis, right lower extremity. HISTORY OF PRESENT ILLNESS: The patient is an 86-year-old male who was admitted to [facility] on 03/02/2017 for sepsis. The patient has a history of recurrent cellulitis of the lower extremities with [facility] The patient has dementia and has difficulty hearing. Responses are difficult to ascertain. PAST MEDICAL HISTORY: Significant for organic brain syndrome, hypertensive cardiovascular disease, deafness, hyperlipidemia, Alzheimer's dementia, dyslipidemia, and peripheral vascular disease. ALLERGIES: He has no known drug allergies. MEDICATIONS: Per [facility] and include morphine, cefepime, vancomycin, heparin for DVT prophylaxis, 81 mg of aspirin, and Plavix 75 mg daily. FAMILY HISTORY: Unremarkable. SOCIAL HISTORY: The patient resides in a penitentiary facility. REVIEW OF SYSTEMS: Difficult to obtain secondary to mental status. PHYSICAL EXAMINATION: VITAL SIGNS: Temperature is 97.7, pulse is 72, respirations 18, blood pressure is 129/64, and saturating 99% on room air. EXTREMITIES: Lower extremity physical exam, vascular, nonpalpable pedal pulses noted bilaterally. Feet are equally warm. There is pitting edema noted on the right lower extremity, none noted on the left. No cyanosis is noted. DERMATOLOGICAL: There are no open sores or lesions noted bilaterally. Interdigital spaces are clear bilaterally. There is dystrophic change of the skin noted on the right lower extremity. Again, no open sores or lesions are noted. Some discoloration is noted as well. No malodor is noted. MUSCULOSKELETAL: No gross deformities are noted. NEUROLOGICAL: The patient's gross neurological exam is unremarkable. IMAGING DATA: No lower extremity imaging is noted on this admission. LABORATORY DATA: White blood cell count is 11.3, hemoglobin and hematocrit is 15.2 and 43.3, and platelet count is 319. Potassium is 4.1, BUN is , creatinine is 1.8. Lactic acid is 1.70. Albumin is 2.5. INR is 1.0. ASSESSMENT: 1. Cellulitis, right lower extremity. 2. Peripheral vascular disease. 3. Edema. 4. Skin dystrophy. PLAN: 1. No open wounds noted. No surgical intervention is indicated at this time. 2. The patient has been seen by Vascular Surgery. Recommendations are appreciated. 3. Compression therapy at this point is contraindicated at this time. 4. We will prescribe a Conazol cream daily to the right lower extremity to help with skin dystrophy and possible tinea infection. Thank you for the courtesy of this consultation. Edmond Lovell D.P.M. DR: Jagdish JOB#: [id number] CC: Jonathan Mendez M.D.; Fax#: [phone] EDMOND LOVELL D.P.M. ; FAX#: [phone]
--- NOTE | 2017-03-04 18:00 | Consultation ---
DATE OF CONSULTATION: 03/04/2017 REQUESTING PHYSICIAN: Jonathan Mendez M.D. CONSULTING PHYSICIAN: Edmond Lovell D.P.M. REASON FOR CONSULTATION: Recurrent cellulitis, right lower extremity. HISTORY OF PRESENT ILLNESS: The patient is an 86-year-old male who was admitted to [facility] on 03/02/2017 for sepsis. The patient has a history of recurrent cellulitis of the lower extremities with [facility]. The patient has dementia and has difficulty hearing. Responses are difficult to ascertain. PAST MEDICAL HISTORY: Significant for organic brain syndrome, hypertensive cardiovascular disease, deafness, hyperlipidemia, Alzheimer's dementia, dyslipidemia, and peripheral vascular disease. ALLERGIES: He has no known drug allergies. MEDICATIONS: Per [facility] and include morphine, cefepime, vancomycin, heparin for DVT prophylaxis, 81 mg of aspirin, and Plavix 75 mg daily. FAMILY HISTORY: Unremarkable. SOCIAL HISTORY: The patient resides in a longterm facility. REVIEW OF SYSTEMS: Difficult to obtain secondary to mental status. PHYSICAL EXAMINATION: VITAL SIGNS: Temperature is 97.7, pulse is 72, respirations 18, blood pressure is 129/64, and saturating 99% on room air. EXTREMITIES: Lower extremity physical exam, vascular, nonpalpable pedal pulses noted bilaterally. Feet are equally warm. There is pitting edema noted on the right lower extremity, none noted on the left. No cyanosis is noted. DERMATOLOGICAL: There are no open sores or lesions noted bilaterally. Interdigital spaces are clear bilaterally. There is dystrophic change of the skin noted on the right lower extremity. Again, no open sores or lesions are noted. Some discoloration is noted as well. No malodor is noted. MUSCULOSKELETAL: No gross deformities are noted. NEUROLOGICAL: The patient's gross neurological exam is unremarkable. IMAGING DATA: No lower extremity imaging is noted on this admission. LABORATORY DATA: White blood cell count is 11.3, hemoglobin and hematocrit is 15.2 and 43.3, and platelet count is 319. Potassium is 4.1, BUN is , creatinine is 1.8. Lactic acid is 1.70. Albumin is 2.5. INR is 1.0. ASSESSMENT: 1. Cellulitis, right lower extremity. 2. Peripheral vascular disease. 3. Edema. 4. Skin dystrophy. PLAN: 1. No open wounds noted. No surgical intervention is indicated at this time. 2. The patient has been seen by Vascular Surgery. Recommendations are appreciated. 3. Compression therapy at this point is contraindicated at this time. 4. We will prescribe a Conazol cream daily to the right lower extremity to help with skin dystrophy and possible tinea infection. Thank you for the courtesy of this consultation. Edmond Lovell D.P.M. DR: Jagdish JOB#: [id number] CC: Jonathan Mendez M.D.; Fax#: [phone] EDMOND LOVELL D.P.M. ; FAX#: [phone]
--- NOTE | 2017-03-04 18:00 | Consultation ---
DATE OF CONSULTATION: 03/04/2017 REQUESTING PHYSICIAN: Jonathan Mendez M.D. CONSULTING PHYSICIAN: Edmond Lovell D.P.M. REASON FOR CONSULTATION: Recurrent cellulitis, right lower extremity. HISTORY OF PRESENT ILLNESS: The patient is an 86-year-old male who was admitted to [facility] on 03/02/2017 for sepsis. The patient has a history of recurrent cellulitis of the lower extremities with [facility]. The patient has dementia and has difficulty hearing. Responses are difficult to ascertain. PAST MEDICAL HISTORY: Significant for organic brain syndrome, hypertensive cardiovascular disease, deafness, hyperlipidemia, Alzheimer's dementia, dyslipidemia, and peripheral vascular disease. ALLERGIES: He has no known drug allergies. MEDICATIONS: Per [facility] and include morphine, cefepime, vancomycin, heparin for DVT prophylaxis, 81 mg of aspirin, and Plavix 75 mg daily. FAMILY HISTORY: Unremarkable. SOCIAL HISTORY: The patient resides in a detention facility. REVIEW OF SYSTEMS: Difficult to obtain secondary to mental status. PHYSICAL EXAMINATION: VITAL SIGNS: Temperature is 97.7, pulse is 72, respirations 18, blood pressure is 129/64, and saturating 99% on room air. EXTREMITIES: Lower extremity physical exam, vascular, nonpalpable pedal pulses noted bilaterally. Feet are equally warm. There is pitting edema noted on the right lower extremity, none noted on the left. No cyanosis is noted. DERMATOLOGICAL: There are no open sores or lesions noted bilaterally. Interdigital spaces are clear bilaterally. There is dystrophic change of the skin noted on the right lower extremity. Again, no open sores or lesions are noted. Some discoloration is noted as well. No malodor is noted. MUSCULOSKELETAL: No gross deformities are noted. NEUROLOGICAL: The patient's gross neurological exam is unremarkable. IMAGING DATA: No lower extremity imaging is noted on this admission. LABORATORY DATA: White blood cell count is 11.3, hemoglobin and hematocrit is 15.2 and 43.3, and platelet count is 319. Potassium is 4.1, BUN is , creatinine is 1.8. Lactic acid is 1.70. Albumin is 2.5. INR is 1.0. ASSESSMENT: 1. Cellulitis, right lower extremity. 2. Peripheral vascular disease. 3. Edema. 4. Skin dystrophy. PLAN: 1. No open wounds noted. No surgical intervention is indicated at this time. 2. The patient has been seen by Vascular Surgery. Recommendations are appreciated. 3. Compression therapy at this point is contraindicated at this time. 4. We will prescribe a Conazol cream daily to the right lower extremity to help with skin dystrophy and possible tinea infection. Thank you for the courtesy of this consultation. Edmond Lovell D.P.M. DR: Jagdish JOB#: [id number] CC: Jonathan Mendez M.D.; Fax#: [phone] EDMOND LOVELL D.P.M. ; FAX#: [phone]
[2017-03-04 20:16] VITALS: BP 133/64
[2017-03-04] MEDS: Depakote 125mg Sprinkles ORAL SCH (20:42)
[2017-03-05 00:13] VITALS: BP 136/75
[2017-03-05 04:53] VITALS: BP 127/69
[2017-03-05 08:00] VITALS: BP 120/70
--- NOTE | 2017-03-05 09:19 | Infectious Diseases Prog Note ---
Assessment/Plan Assessment/Plan ASSESSMENT AND PLAN: 1. bilateral leg cellulitis, leg edema, arteriovenous insufficiency, sepsis, fevers, leukocytosis - clinically better, less cellulitis, sepsis better - continue vancomycin and cefepime for 7 days more - d/w vascular surgery and we agree with iv abx because of underlying leg pathology - d/w Dr. Mendez and RN 2. Elevated creatinine - improved 3. Hemoglobin stable. 4. Deafness. 5. Organic brain syndrome, hx psychosis 6. Hypertension. 7. Hypertensive heart disease. 8. Hyperlipidemia. 9. No allergies. 10. Social history negative. 11. MAR was noted. 12. Case discussed with RN. 13. Family history is noncontributory. 14. Continue treatment per Dr. Mendez and consultants. 15. Skin care protocol. 16. Notes and records were noted. 17. Orders were entered and noted. Subjective Constitutional: Reports: fatigue, Denies: fever HEENT: Denies: dysphagia, congestion Respiratory: Denies: shortness of breath Cardiovascular: Denies: chest pain Gastrointestinal/Abdominal: Denies: nausea, vomiting, diarrhea Genitourinary: Denies: dysuria, hematuria, frequency Neurologic: Denies: headache, numbness Psychiatric: Denies: depression Skin: Denies: rash Hematologic: Denies: bleeding Musculoskeletal: Denies: pain Allergies: Coded Allergies: No Known Allergies (Unverified , 03/01/17) Objective Vital Signs Last 24 Hour Vital Signs Date Time Temp Pulse Resp B/P (MAP) Pulse Ox O2 Delivery O2 Flow Rate FiO2 03/05/17 08:00 96.4 83 17 120/70 100 Room Air 03/05/17 04:53 96.7 82 18 127/69 100 Room Air 03/05/17 00:13 96.8 86 20 136/75 100 Room Air 03/04/17 20:16 96.5 69 20 133/64 100 Room Air 03/04/17 16:03 98.0 69 20 125/65 96 Room Air 03/04/17 11:52 97.8 71 20 136/58 96 Room Air Height (Feet): 5 Height (Inches): 9.00 Weight (Pounds): 152 General Appearance: no acute distress HEENT: normocephalic, atraumatic, anicteric, mucous membranes moist, EOMI, pharynx normal, supple, no JVD Respiratory/Chest: lungs clear, normal breath sounds, no respiratory distress, no accessory muscle use Cardiovascular: normal rate, regular rhythm, no gallop/murmur, no JVD Abdomen: normal bowel sounds, soft, non tender, no organomegaly, non distended Genitourinary: other - no warren Extremities: no cyanosis, other - + edema, less warmth and redness, r>l leg cellulitis Skin: no rash, other Neurologic/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, abnormal gait, responsive Lymphatic: no neck adenopathy Musculoskeletal: no effusion, other - no septic arthritis Objective hida - negative (report noted) ct - abdomen and pelvis - nad (report noted) chest x-ray - nad (report noted) Microbiology Date/Time Source Procedure Growth Status 03/01/17 23:45 Blood Blood Culture - Preliminary NO GROWTH AFTER 72 HOURS Resulted Laboratory Tests Test 03/04/17 10:50 03/04/17 11:00 Sodium Level 136 MMOL/L (136-145) Potassium Level 3.9 MMOL/L (3.5-5.1) Chloride Level 103 MMOL/L (98-107) Carbon Dioxide Level 29 MMOL/L (21-32) Anion Gap 4 mmol/L (5-15) L Blood Urea Nitrogen 8 mg/dL (7-18) Creatinine 1.2 MG/DL (0.55-1.30) Estimat Glomerular Filtration Rate mL/min (>60) Glucose Level 86 MG/DL (74-106) Calcium Level 8.8 MG/DL (8.5-10.1) White Blood Count 4.7 K/UL (4.8-10.8) L Red Blood Count 3.44 M/UL (4.70-6.10) L Hemoglobin 10.3 G/DL (14.2-18.0) L Hematocrit 31.8 % (42.0-52.0) L Mean Corpuscular Volume 92 FL (80-99) Mean Corpuscular Hemoglobin 30.0 PG (27.0-31.0) Mean Corpuscular Hemoglobin Concent 32.4 G/DL (32.0-36.0) Red Cell Distribution Width 14.4 % (11.6-14.8) Platelet Count 192 K/UL (150-450) Mean Platelet Volume 7.7 FL (6.5-10.1) Neutrophils (%) (Auto) 53.4 % (45.0-75.0) Lymphocytes (%) (Auto) 23.5 % (20.0-45.0) Monocytes (%) (Auto) 8.1 % (1.0-10.0) Eosinophils (%) (Auto) 13.8 % (0.0-3.0) H Basophils (%) (Auto) 1.1 % (0.0-2.0) Random Vancomycin Level 4.8 ug/mL Current Medications Medications (Trade) Dose Ordered Sig/Pao Route PRN Reason Start Time Stop Time Status Last Admin Dose Admin Acetaminophen (Tylenol) 500 mg Q4H PRN ORAL Mild Pain (Pain Scale 1-3) 03/02/17 08:00 04/01/17 07:59 Acetaminophen (Tylenol) 650 mg Q4H PRN ORAL Moderate Pain/Temp > 100.5 03/02/17 08:00 04/01/17 07:59 Al Hydroxide/Mg Hydroxide (Mylanta II) 30 ml Q6H PRN ORAL DYSPEPSIA/GI DISTRESS 03/02/17 09:00 04/01/17 08:59 Aspirin (Ecotrin) 81 mg DAILY ORAL 03/02/17 09:00 04/01/17 08:59 03/04/17 11:14 Cefepime HCl 2 gm/ Dextrose 110 ml @ 220 mls/hr Q24H IVPB 03/03/17 10:30 03/10/17 10:29 03/04/17 11:21 Clopidogrel Bisulfate (Plavix) 75 mg DAILY ORAL 03/02/17 09:00 04/01/17 08:59 03/04/17 11:13 Divalproex Sodium (Depakote Sprinkles) 250 mg Q12HR ORAL 03/04/17 21:00 04/03/17 20:59 03/04/17 20:42 Docusate Sodium (Colace) 100 mg TWICE A DAY ORAL 03/02/17 09:00 04/01/17 08:59 03/04/17 17:58 Donepezil HCl (Aricept) 10 mg DAILY ORAL 03/02/17 09:00 04/01/17 08:59 03/04/17 11:13 Econazole Nitrate (Spectazole) 1 applic DAILY TOPIC 03/04/17 09:00 04/03/17 08:59 03/04/17 11:19 Heparin Sodium (Porcine) (Heparin 5000 units/ml) 5,000 units EVERY 12 HOURS SUBQ 03/02/17 09:00 04/01/17 08:59 03/03/17 20:59 Lorazepam (Ativan) 1 mg Q6H PRN ORAL For Anxiety 03/02/17 07:45 03/09/17 07:44 03/04/17 08:35 Magnesium Hydroxide (Mom) 30 ml Q4H PRN ORAL CONSTIPATION 03/02/17 08:00 04/01/17 07:59 Memantine (Namenda) 10 mg DAILY ORAL 03/02/17 09:00 04/01/17 08:59 03/04/17 11:14 Multivitamins (Multivitamins) 1 tab DAILY ORAL 03/02/17 09:00 04/01/17 08:59 03/04/17 11:14 Pantoprazole (Protonix) 40 mg DAILY ORAL 03/02/17 09:00 04/01/17 08:59 03/04/17 11:13 Pravastatin Sodium (Pravachol) 10 mg BEDTIME ORAL 03/02/17 21:00 04/01/17 20:59 03/04/17 20:41 Vancomycin HCl (Vanco rx to dose) 1 ea DAILY PRN MISC Per rx protocol 03/03/17 09:15 04/02/17 09:14 Vancomycin/Sodium Chloride 250 ml @ 166.667 mls/hr Q24H IVPB 03/05/17 13:00 03/10/17 12:59 ZITA PLASENCIA Mar 05, 2017 09:19
[2017-03-05] MEDS: Aspirin EC 81mg tab ORAL SCH (09:27)
[2017-03-05] MEDS: Memantine 10mg tab ORAL SCH (09:29)
[2017-03-05] MEDS: Donepezil 10mg tab ORAL SCH (09:31)
[2017-03-05] MEDS: Depakote 125mg Sprinkles ORAL SCH (09:37)
[2017-03-05] MEDS: Docusate 100mg cap ORAL SCH (09:42)
[2017-03-05] MEDS: Econazole 1% Cream 15gm TOPIC SCH (09:44)
[2017-03-05] MEDS: Heparin 5000 units/ml inj SUBQ SCH (09:45)
[2017-03-05] MEDS: Cefepime HCl 2 GM in D5W 110 ML IVPB SCH (10:35)
[2017-03-05] MEDS ORDERED: LORazepam Inj 2mg/ml 1ml IV ONE (12:00)
[2017-03-05] MEDS ORDERED: DiphenhydrAMINE 50mg/ml Inj IM ONE (12:00)
[2017-03-05] MEDS ORDERED: Haloperidol 5mg/ml Inj IM ONE (12:00)
--- NOTE | 2017-03-05 12:50 | General Progress Note ---
Assessment/Plan Assessment/Plan B LE cellulitis. This is the source of infection. On IV Abx. Seen by Vasc Sx, ID and Podiatry.DC held. Going now. Stable for DC to SNF. Subjective Allergies: Coded Allergies: No Known Allergies (Unverified , 03/01/17) Subjective Confused Objective Last 24 Hour Vital Signs Date Time Temp Pulse Resp B/P (MAP) Pulse Ox O2 Delivery O2 Flow Rate FiO2 03/05/17 08:00 96.4 83 17 120/70 100 Room Air 03/05/17 04:53 96.7 82 18 127/69 100 Room Air 03/05/17 00:13 96.8 86 20 136/75 100 Room Air 03/04/17 20:16 96.5 69 20 133/64 100 Room Air 03/04/17 16:03 98.0 69 20 125/65 96 Room Air Intake and Output 03/05/17 03/06/17 18:59 06:59 Intake Total 150 ml Balance 150 ml Intake Oral 150 ml # Voids 1 Height (Feet): 5 Height (Inches): 9.00 Weight (Pounds): 152 Objective CV RR Lungs CTA Abd SNT. Bs + E B Edema ++ cellulitis JON PURVIS Mar 05, 2017 12:50
[2017-03-05] MEDS ORDERED: Vancomycin 750mg/NS 250ml IVPB SCH (13:00)
--- NOTE | 2017-03-05 14:00 | Vascular Surgery Progress Note ---
Subjective Subjective All noted No new complaints Better on abx per ID Confused baseline Objective Objective Last 24 Hour Vital Signs Date Time Temp Pulse Resp B/P (MAP) Pulse Ox O2 Delivery O2 Flow Rate FiO2 03/05/17 08:00 96.4 83 17 120/70 100 Room Air 03/05/17 04:53 96.7 82 18 127/69 100 Room Air 03/05/17 00:13 96.8 86 20 136/75 100 Room Air 03/04/17 20:16 96.5 69 20 133/64 100 Room Air 03/04/17 16:03 98.0 69 20 125/65 96 Room Air Intake and Output 03/05/17 03/06/17 19:00 07:00 Intake Total 150 ml Balance 150 ml Intake Oral 150 ml # Voids 1 Height (Feet): 5 Height (Inches): 9.00 Weight (Pounds): 152 Objective cvs rrr lungs cta abd soft nontender 2+ femorals intact popliteals 3+ left DP palpable pulses Left leg c/d/i no ulcers Right leg mixed venous stasis changes absent right foot pulses Assessment/Plan Assessment IMPRESSION: 1. Right lower extremity cellulitis with history of mixed arteriovenous insufficiency with leukocytosis and low-grade fever----- improving on abx per ID 2. History of dementia. 3. Psychosis. 4. Organic brain syndrome. 5. History of hypertension and renal failure. 6. Prior history of left leg successful percutaneous revascularization with resolution of symptoms--- has palpable left DP pulses with no left leg ulcers Plan RECOMMENDATION: 1. Antibiotics per Infectious Disease service. 2. Continue DVT and decubitus precautions. 3. The patient will require contralateral right leg revascularization and angiography as outpatient-- will be scheduled & coordinated with PMD and family d/w pt's nurse d/w pmd and LESLY RIZZO Mar 05, 2017 14:00
[2017-03-05] MEDS ORDERED: Docusate 100mg/10ml Liq ORAL SCH (18:00)
--- NOTE | 2017-03-05 23:10 | Consultation ---
History of Present Illness General Date patient seen: Mar 04, 2017 Chief Complaint: Fever Present Illness [facility] 86[facility] Allergies: Coded Allergies: No Known Allergies (Unverified , 03/01/17) Medication History Scheduled Aspirin* (Aspir 81*), 81 MG ORAL DAILY, (Reported) Clopidogrel* (Clopidogrel*), 75 MG ORAL DAILY, (Reported) Divalproex Sodium* (Depakote*), 250 MG PO Q12HR, (Reported) Docusate Sodium* (Docusate Sodium*), 100 MG ORAL TWICE A DAY, (Reported) Donepezil Hcl* (Donepezil Hcl*), 10 MG ORAL DAILY, (Reported) Heparin Sod (Porcine) (Heparin Sodium*), 5,000 UNITS SUBQ EVERY 12 HOURS, ( Reported) Lorazepam (Lorazepam), 0.5 GM IV Q6HR, (Reported) Mag Hydrox/Al Hydrox/Simeth (Alum-Mag Hydroxide-Simeth Liq), 360 ML PO FOUR TIMES A DAY, (Reported) Magnesium Hydroxide* (Milk Of Magnesia*), 30 ML ORAL HS, (Reported) Memantine Hcl* (Namenda*), 10 MG ORAL DAILY, (Reported) Multivitamins* (Multivitamins*), 1 TAB ORAL DAILY, (Reported) Pantoprazole* (Pantoprazole*), 40 MG ORAL DAILY, (Reported) Ovatqpyyszpv-Gtpi-Enzrnhxl,Iso (Zosyn 3.375 Gm Pre Mix-Bag), 3.375 GM IVPB EVERY 8 HOURS, (Reported) Pravastatin Sod* (Pravastatin Sod*), 10 MG ORAL BEDTIME, (Reported) Vancomycin Hcl/D5w (Vancomycin-D5w 1 G/250 Ml), 1 GM IVPB Q24H, (Reported) Scheduled PRN Acetaminophen* (Tylenol Extra Strength*), 650 MG ORAL Q4HR PRN for Mild Pain/ Temp > 100.5, (Reported) Discontinued Medications Acetaminophen* (Tylenol Extra Strength*), 500 MG ORAL EVERY 4 HOURS PRN for Moderate Pain (Pain Scale 4-6), (Reported) Discontinued Reason: MD discontinued med Acetaminophen* (Acetaminophen 325MG Tablet*), 650 MG ORAL Q4H PRN for Mild Pain/ Temp > 100.5, (Reported) Discontinued Reason: discontinued med Acetylcysteine* (Acetylcysteine*), 600 MG ORAL TWICE A DAY, (Reported) Discontinued Reason: MD discontinued med Patient History History Provided By: Patient, Medical Record, PMD Healthcare decision maker SISTERRAFAT, Resuscitation status Full Code Advanced Directive on File No Review of Systems Psychiatric: Reports: prior hx, anxiety, depressed feelings, emotional problems Physical Exam General Appearance: confused, severe distress, agitated Neurologic: alert, responsive, depressed affect Last 24 Hour Vital Signs Date Time Temp Pulse Resp B/P (MAP) Pulse Ox O2 Delivery O2 Flow Rate FiO2 03/05/17 08:00 96.4 83 17 120/70 100 Room Air 03/05/17 04:53 96.7 82 18 127/69 100 Room Air 03/05/17 00:13 96.8 86 20 136/75 100 Room Air Intake and Output 03/05/17 03/06/17 19:00 07:00 Intake Total 150 ml Balance 150 ml Intake Oral 150 ml # Voids 1 Height (Feet): 5 Height (Inches): 9.00 Weight (Pounds): 152 Assessment/Plan Status: stable Assessment/Plan the pt was hitting staff when they were trying to change him he received a cocktail Odette Lang M.D. Mar 05, 2017 23:10
--- NOTE | 2017-03-05 23:10 | Consultation ---
History of Present Illness General Date patient seen: Mar 04, 2017 Chief Complaint: Fever Present Illness [facility] 86[facility]. Allergies: Coded Allergies: No Known Allergies (Unverified , 03/01/17) Medication History Scheduled Aspirin* (Aspir 81*), 81 MG ORAL DAILY, (Reported) Clopidogrel* (Clopidogrel*), 75 MG ORAL DAILY, (Reported) Divalproex Sodium* (Depakote*), 250 MG PO Q12HR, (Reported) Docusate Sodium* (Docusate Sodium*), 100 MG ORAL TWICE A DAY, (Reported) Donepezil Hcl* (Donepezil Hcl*), 10 MG ORAL DAILY, (Reported) Heparin Sod (Porcine) (Heparin Sodium*), 5,000 UNITS SUBQ EVERY 12 HOURS, ( Reported) Lorazepam (Lorazepam), 0.5 GM IV Q6HR, (Reported) Mag Hydrox/Al Hydrox/Simeth (Alum-Mag Hydroxide-Simeth Liq), 360 ML PO FOUR TIMES A DAY, (Reported) Magnesium Hydroxide* (Milk Of Magnesia*), 30 ML ORAL HS, (Reported) Memantine Hcl* (Namenda*), 10 MG ORAL DAILY, (Reported) Multivitamins* (Multivitamins*), 1 TAB ORAL DAILY, (Reported) Pantoprazole* (Pantoprazole*), 40 MG ORAL DAILY, (Reported) Itzjrrybjoay-Foob-Lltmajwy,Iso (Zosyn 3.375 Gm Pre Mix-Bag), 3.375 GM IVPB EVERY 8 HOURS, (Reported) Pravastatin Sod* (Pravastatin Sod*), 10 MG ORAL BEDTIME, (Reported) Vancomycin Hcl/D5w (Vancomycin-D5w 1 G/250 Ml), 1 GM IVPB Q24H, (Reported) Scheduled PRN Acetaminophen* (Tylenol Extra Strength*), 650 MG ORAL Q4HR PRN for Mild Pain/ Temp > 100.5, (Reported) Discontinued Medications Acetaminophen* (Tylenol Extra Strength*), 500 MG ORAL EVERY 4 HOURS PRN for Moderate Pain (Pain Scale 4-6), (Reported) Discontinued Reason: MD discontinued med Acetaminophen* (Acetaminophen 325MG Tablet*), 650 MG ORAL Q4H PRN for Mild Pain/ Temp > 100.5, (Reported) Discontinued Reason: discontinued med Acetylcysteine* (Acetylcysteine*), 600 MG ORAL TWICE A DAY, (Reported) Discontinued Reason: MD discontinued med Patient History History Provided By: Patient, Medical Record, PMD Healthcare decision maker SISTERRAFAT, Resuscitation status Full Code Advanced Directive on File No Review of Systems Psychiatric: Reports: prior hx, anxiety, depressed feelings, emotional problems Physical Exam General Appearance: confused, severe distress, agitated Neurologic: alert, responsive, depressed affect Last 24 Hour Vital Signs Date Time Temp Pulse Resp B/P (MAP) Pulse Ox O2 Delivery O2 Flow Rate FiO2 03/05/17 08:00 96.4 83 17 120/70 100 Room Air 03/05/17 04:53 96.7 82 18 127/69 100 Room Air 03/05/17 00:13 96.8 86 20 136/75 100 Room Air Intake and Output 03/05/17 03/06/17 19:00 07:00 Intake Total 150 ml Balance 150 ml Intake Oral 150 ml # Voids 1 Height (Feet): 5 Height (Inches): 9.00 Weight (Pounds): 152 Assessment/Plan Status: stable Assessment/Plan the pt was hitting staff when they were trying to change him he received a cocktail Oedtte Lang M.D. Mar 05, 2017 23:10
--- NOTE | 2017-03-05 23:10 | Consultation ---
History of Present Illness General Date patient seen: Mar 04, 2017 Chief Complaint: Fever Present Illness [facility] 86[facility] Allergies: Coded Allergies: No Known Allergies (Unverified , 03/01/17) Medication History Scheduled Aspirin* (Aspir 81*), 81 MG ORAL DAILY, (Reported) Clopidogrel* (Clopidogrel*), 75 MG ORAL DAILY, (Reported) Divalproex Sodium* (Depakote*), 250 MG PO Q12HR, (Reported) Docusate Sodium* (Docusate Sodium*), 100 MG ORAL TWICE A DAY, (Reported) Donepezil Hcl* (Donepezil Hcl*), 10 MG ORAL DAILY, (Reported) Heparin Sod (Porcine) (Heparin Sodium*), 5,000 UNITS SUBQ EVERY 12 HOURS, ( Reported) Lorazepam (Lorazepam), 0.5 GM IV Q6HR, (Reported) Mag Hydrox/Al Hydrox/Simeth (Alum-Mag Hydroxide-Simeth Liq), 360 ML PO FOUR TIMES A DAY, (Reported) Magnesium Hydroxide* (Milk Of Magnesia*), 30 ML ORAL HS, (Reported) Memantine Hcl* (Namenda*), 10 MG ORAL DAILY, (Reported) Multivitamins* (Multivitamins*), 1 TAB ORAL DAILY, (Reported) Pantoprazole* (Pantoprazole*), 40 MG ORAL DAILY, (Reported) Upzzqxwbjzpc-Xlbe-Rprxnqrh,Iso (Zosyn 3.375 Gm Pre Mix-Bag), 3.375 GM IVPB EVERY 8 HOURS, (Reported) Pravastatin Sod* (Pravastatin Sod*), 10 MG ORAL BEDTIME, (Reported) Vancomycin Hcl/D5w (Vancomycin-D5w 1 G/250 Ml), 1 GM IVPB Q24H, (Reported) Scheduled PRN Acetaminophen* (Tylenol Extra Strength*), 650 MG ORAL Q4HR PRN for Mild Pain/ Temp > 100.5, (Reported) Discontinued Medications Acetaminophen* (Tylenol Extra Strength*), 500 MG ORAL EVERY 4 HOURS PRN for Moderate Pain (Pain Scale 4-6), (Reported) Discontinued Reason: MD discontinued med Acetaminophen* (Acetaminophen 325MG Tablet*), 650 MG ORAL Q4H PRN for Mild Pain/ Temp > 100.5, (Reported) Discontinued Reason: discontinued med Acetylcysteine* (Acetylcysteine*), 600 MG ORAL TWICE A DAY, (Reported) Discontinued Reason: MD discontinued med Patient History History Provided By: Patient, Medical Record, PMD Healthcare decision maker SISTERRAFAT, Resuscitation status Full Code Advanced Directive on File No Review of Systems Psychiatric: Reports: prior hx, anxiety, depressed feelings, emotional problems Physical Exam General Appearance: confused, severe distress, agitated Neurologic: alert, responsive, depressed affect Last 24 Hour Vital Signs Date Time Temp Pulse Resp B/P (MAP) Pulse Ox O2 Delivery O2 Flow Rate FiO2 03/05/17 08:00 96.4 83 17 120/70 100 Room Air 03/05/17 04:53 96.7 82 18 127/69 100 Room Air 03/05/17 00:13 96.8 86 20 136/75 100 Room Air Intake and Output 03/05/17 03/06/17 19:00 07:00 Intake Total 150 ml Balance 150 ml Intake Oral 150 ml # Voids 1 Height (Feet): 5 Height (Inches): 9.00 Weight (Pounds): 152 Assessment/Plan Status: stable Assessment/Plan the pt was hitting staff when they were trying to change him he received a cocktail Odette Lang M.D. Mar 05, 2017 23:10
[2017-03-06] MEDS ORDERED: Aspirin Baby 81mg ORAL SCH (09:00)
--- NOTE | 2017-03-07 13:13 | Discharge Summary ---
Discharge Summary Hospital Course Date of Admission Mar 02, 2017 at 01:34 Date of Discharge Mar 05, 2017 at 13:10 Admitting Diagnosis sepsis HPI Krishna Rinaldi is a 86 year old male who was admitted on Mar 02, 2017 at 01:34 for Sepsis Hospital Course [id number] Discharge Discharge Disposition Patient was discharged to SNF/Subacute Facility(03) Discharge Diagnoses: Maria Eugenia Bey NP Mar 07, 2017 13:13
--- NOTE | 2017-03-07 13:13 | Discharge Summary ---
Discharge Summary Hospital Course Date of Admission Mar 02, 2017 at 01:34 Date of Discharge Mar 05, 2017 at 13:10 Admitting Diagnosis sepsis HPI Krishna Rinaldi is a 86 year old male who was admitted on Mar 02, 2017 at 01:34 for Sepsis Hospital Course [id number] Discharge Discharge Disposition Patient was discharged to SNF/Subacute Facility(03) Discharge Diagnoses: Maria Eugenia Bey NP Mar 07, 2017 13:13
--- NOTE | 2017-03-07 13:13 | Discharge Summary ---
Discharge Summary Hospital Course Date of Admission Mar 02, 2017 at 01:34 Date of Discharge Mar 05, 2017 at 13:10 Admitting Diagnosis sepsis HPI Krishna Rinaldi is a 86 year old male who was admitted on Mar 02, 2017 at 01:34 for Sepsis Hospital Course [id number] Discharge Discharge Disposition Patient was discharged to SNF/Subacute Facility(03) Discharge Diagnoses: Maria Eugenia Bye NP Mar 07, 2017 13:13
--- NOTE | 2017-03-07 18:16 | General Progress Note ---
Assessment/Plan Status: stable Subjective Date patient seen: Mar 05, 2017 Neurologic/Psychiatric: Reports: anxiety, depressed Allergies: Coded Allergies: No Known Allergies (Unverified , 03/01/17) Subjective the pt was angry and agitated confused and illogical Objective Height (Feet): 5 Height (Inches): 9.00 Weight (Pounds): 152 General Appearance: no apparent distress, alert, confused Neurologic: alert, responsive, normal mood/affect, disoriented Odette Lang M.D. Mar 07, 2017 18:16
--- NOTE | 2017-03-07 23:00 | Discharge Summary 2 SIG ---
DATE OF ADMISSION: 03/02/2017 DATE OF DISCHARGE: 03/05/2017 CONSULTANTS: 1. Renato Vieira M.D. 2. Griffin Kamara M.D. 3. Edmond Ayers D.P.M. BRIEF HOSPITAL COURSE: The patient is an 86-year-old male, admitted from [facility]. The patient had fever in the care home. He had a recent hospitalization several weeks ago at [facility] where he had failure to thrive and poor oral intake. He was noted to have severe peripheral vascular disease of the left lower extremity. He underwent angioplasty to his left femoral arterial system with good results. He then presented to ED with fever. Blood work showed WBC of 11.3. Creatinine was 1.8. Albumin was 2.5. Chest x-ray done showed no acute process. CT of the abdomen and pelvis showed gallstones. He had leukocytosis and fever with elevated heart rate over 90. He was placed on vancomycin and cefepime. He was seen by Dr Vieira. He had warmth and redness with swelling on both lower lower extremities, right more than left. He was seen by Electromechanical Technologist. The patient did not have any open wounds. There was no surgical intervention indicated. He had palpable femoral pulses, stronger left popliteal pulse, stronger left foot Doppler signals, and palpable left dorsalis pedis pulse. Right foot is warm and has a weaker Doppler. Venous duplex of lower extremity showed patent deep venous system bilaterally with no evidence of thrombus. Arterial scan showed no evidence of significant arterial occlusive disease bilaterally. He underwent HIDA scan. Results were negative with no evidence of cystic duct or common bile duct obstruction. Bilateral lower extremity was source of infection. He was eventually discharged back to SNF to continue antibiotic treatment. FINAL DIAGNOSES: 1. Bilateral lower extremity cellulitis. 2. Prior left leg percutaneous revascularization. 3. Organic brain syndrome. 4. Dementia. 5. Hypertension. 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 7. Sepsis, fever, and leukocytosis. 8. Hypertensive heart disease. 9. Hyperlipidemia. 10. Leg edema with skin dystrophy. DISPOSITION: The patient was discharged back to [facility]. DISCHARGE MEDICATIONS: Refer to medication list. Continue with Zosyn and vancomycin. Jonathan Mendez M.D. I have been assigned to dictate discharge summary on this account and I was not involved in the patient's management. Maria Eugenia Bey N.P. DR: BISHOP JOB#: [id number] CC: WILY
--- NOTE | 2017-03-07 23:00 | Discharge Summary 2 SIG ---
DATE OF ADMISSION: 03/02/2017 DATE OF DISCHARGE: 03/05/2017 CONSULTANTS: 1. Renato Vieira M.D. 2. Griffin Kamara M.D. 3. Edmond Ayers D.P.M. BRIEF HOSPITAL COURSE: The patient is an 86-year-old male, admitted from [facility]. The patient had fever in the senior living. He had a recent hospitalization several weeks ago at [facility] where he had failure to thrive and poor oral intake. He was noted to have severe peripheral vascular disease of the left lower extremity. He underwent angioplasty to his left femoral arterial system with good results. He then presented to ED with fever. Blood work showed WBC of 11.3. Creatinine was 1.8. Albumin was 2.5. Chest x-ray done showed no acute process. CT of the abdomen and pelvis showed gallstones. He had leukocytosis and fever with elevated heart rate over 90. He was placed on vancomycin and cefepime. He was seen by Dr Vieira. He had warmth and redness with swelling on both lower lower extremities, right more than left. He was seen by Glass Inspector. The patient did not have any open wounds. There was no surgical intervention indicated. He had palpable femoral pulses, stronger left popliteal pulse, stronger left foot Doppler signals, and palpable left dorsalis pedis pulse. Right foot is warm and has a weaker Doppler. Venous duplex of lower extremity showed patent deep venous system bilaterally with no evidence of thrombus. Arterial scan showed no evidence of significant arterial occlusive disease bilaterally. He underwent HIDA scan. Results were negative with no evidence of cystic duct or common bile duct obstruction. Bilateral lower extremity was source of infection. He was eventually discharged back to SNF to continue antibiotic treatment. FINAL DIAGNOSES: 1. Bilateral lower extremity cellulitis. 2. Prior left leg percutaneous revascularization. 3. Organic brain syndrome. 4. Dementia. 5. Hypertension. 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 7. Sepsis, fever, and leukocytosis. 8. Hypertensive heart disease. 9. Hyperlipidemia. 10. Leg edema with skin dystrophy. DISPOSITION: The patient was discharged back to [facility]. DISCHARGE MEDICATIONS: Refer to medication list. Continue with Zosyn and vancomycin. Jonathan Mendez M.D. I have been assigned to dictate discharge summary on this account and I was not involved in the patient's management. Maria Eugenia Bey N.P. DR: BISHOP JOB#: [id number] CC: WILY
--- NOTE | 2017-03-07 23:00 | Discharge Summary 2 SIG ---
DATE OF ADMISSION: 03/02/2017 DATE OF DISCHARGE: 03/05/2017 CONSULTANTS: 1. Renato Vieira M.D. 2. Griffin Kamara M.D. 3. Edmond Ayers D.P.M. BRIEF HOSPITAL COURSE: The patient is an 86-year-old male, admitted from [facility]. The patient had fever in the shelter. He had a recent hospitalization several weeks ago at [facility] where he had failure to thrive and poor oral intake. He was noted to have severe peripheral vascular disease of the left lower extremity. He underwent angioplasty to his left femoral arterial system with good results. He then presented to ED with fever. Blood work showed WBC of 11.3. Creatinine was 1.8. Albumin was 2.5. Chest x-ray done showed no acute process. CT of the abdomen and pelvis showed gallstones. He had leukocytosis and fever with elevated heart rate over 90. He was placed on vancomycin and cefepime. He was seen by Dr Vieira. He had warmth and redness with swelling on both lower lower extremities, right more than left. He was seen by Supervisor Finishing Department. The patient did not have any open wounds. There was no surgical intervention indicated. He had palpable femoral pulses, stronger left popliteal pulse, stronger left foot Doppler signals, and palpable left dorsalis pedis pulse. Right foot is warm and has a weaker Doppler. Venous duplex of lower extremity showed patent deep venous system bilaterally with no evidence of thrombus. Arterial scan showed no evidence of significant arterial occlusive disease bilaterally. He underwent HIDA scan. Results were negative with no evidence of cystic duct or common bile duct obstruction. Bilateral lower extremity was source of infection. He was eventually discharged back to SNF to continue antibiotic treatment. FINAL DIAGNOSES: 1. Bilateral lower extremity cellulitis. 2. Prior left leg percutaneous revascularization. 3. Organic brain syndrome. 4. Dementia. 5. Hypertension. 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 7. Sepsis, fever, and leukocytosis. 8. Hypertensive heart disease. 9. Hyperlipidemia. 10. Leg edema with skin dystrophy. DISPOSITION: The patient was discharged back to [facility]. DISCHARGE MEDICATIONS: Refer to medication list. Continue with Zosyn and vancomycin. Jonathan Mendez M.D. I have been assigned to dictate discharge summary on this account and I was not involved in the patient's management. Maria Eugenia Bey N.P. DR: BISHOP JOB#: [id number] CC: WILY
== END 2017-03-05 13:10 | DRG 872 ==
LOC: EDBD 23:03 → EMR 23:55 → 4W 03-02 01:34 → EDBEDREQ 03-02 02:19
DX: A41.9 Sepsis, unspecified organism (principal); F03.90 Unspecified dementia, unspecified severity, without behavioral disturbance, psychotic disturbance, mood disturbance, and anxiety; I11.9 Hypertensive heart disease without heart failure; L03.115 Cellulitis of right lower limb; L03.116 Cellulitis of left lower limb; H91.90 Unspecified hearing loss, unspecified ear; I73.9 Peripheral vascular disease, unspecified; E78.5 Hyperlipidemia, unspecified; L98.8 Other specified disorders of the skin and subcutaneous tissue; Z79.02 Long term (current) use of antithrombotics/antiplatelets
CPT/HCPCS: 36415; 71010; 74176; 78266; 80048; 80053; 80202; 81003; 82550; 82553; 83605; 84484; 85025; 85610; 85730; 87040; 93005; 93925; 93970; 99285

== ENCOUNTER 2019-03-13 12:37 | Inpatient (IN) | payer MEDICARE, MEDICAID ==
[~2019-03-13] VITALS: Ht 172.7 cm; Wt 79.4 kg
[~2019-03-13 12:37] MED LIST: ACETAMINOPHEN325 M1 ORAL; ACETYLCYST200 MG/1 M ORAL; ALUM-MAG HYDRO360 ML PO; ASPIR 8181 MG ORAL; CLOPIDOGREL75 MG ORAL; DEPAKOTE250 MG PO; DOCUSATE SODIU100 MG ORAL; DONEPEZIL HCL10 M2 ORAL; HEPARIN SO5000 UNIT2 SUBQ; LORAZEPAM0.5 GM IV; MILK OF MA400 MG/51 ORAL; MULTIVITAMINS1 EAC2 ORAL; NAMENDA10 MG ORAL; PANTOPRAZOLE SO40 MG ORAL; PRAVASTATIN SOD20 M1 ORAL; TYLENOL EXTRA500 MG ORAL; VANCOMYCIN1 GM/2502 IVPB; ZOSYN 3.373.375 GM/1 IVPB
[2019-03-13 13:28] VITALS: BP 139/75
[2019-03-13 13:38] LABS: GLUCOSE, URINE (UA) NEGATIVE (NEGATIVE); KETONES,URINE 1+ (NEGATIVE); LEUKOCYTE ESTERASE ,URINE 1+ (NEGATIVE); NITRITE,URINE NEGATIVE (NEGATIVE); PH,URINE 6.5 (4.5-8.0); PROTEIN,URINE 2+ (NEGATIVE); UROBILINOGEN,URINE 1 MG/DL (0.0-1.0)
--- NOTE | 2019-03-13 13:38 | NUR ---
ED Nurse Note: pt came in via ems ra 68 from [facility] for hypotension . pt confused was told that is his baseline. no wounds noted SL established blood and urine sent ekg and imaging done blood cultures and swabs also done. IVF up infusing pt is on monitor vss by currently 139/75 wit pulse of 68.
[2019-03-13] MEDS ORDERED: FLOMAX0.4 MG ORAL (13:49)
[2019-03-13] MEDS ORDERED: MELATONIN3 MG ORAL (13:49)
[2019-03-13] MEDS ORDERED: ZOLOFT25 MG ORAL (13:49)
[2019-03-13] MEDS ORDERED: LABETALOL HCL300 MG ORAL (13:49)
[2019-03-13] MEDS ORDERED: NORCO 5-325 TA1 EACH ORAL (13:49)
[2019-03-13] MEDS ORDERED: VITAMIN D250000 UNI1 ORAL (13:49)
[2019-03-13] MEDS ORDERED: ZYPREXA2.5 MG ORAL (13:49)
[2019-03-13 13:51] LABS: APPEARANCE,URINE CLEAR; BILIRUBIN, URINE 1+ (NEGATIVE); COLOR,URINE AMBER
[2019-03-13 13:59] LABS: BASOPHILS % (AUTO) 0.3 % (0.0-2.0); EOSINOPHILS % (AUTO) 2.4 % (0.0-3.0); HEMATOCRIT 42.6 % (42.0-52.0); HEMOGLOBIN 13.9 G/DL (14.2-18.0); LYMPHOCYTES % (AUTO) 40.7 % (20.0-45.0); MEAN CORPUSCULAR VOLUME 92 FL (80-99); MONOCYTES % (AUTO) 6.4 % (1.0-10.0); NEUTROPHILS % (AUTO) 50.2 % (45.0-75.0); PLATELET COUNT 162 K/UL (150-450); RED BLOOD COUNT 4.62 M/UL (4.70-6.10); RED CELL DISTRIBUTION WIDTH 12.9 % (11.6-14.8); WHITE BLOOD COUNT 5.3 K/UL (4.8-10.8)
[2019-03-13 14:04] LABS: ANION GAP 8 mmol/L (5-15); BLOOD UREA NITROGEN 18 mg/dL (7-18); CALCIUM 9.1 MG/DL (8.5-10.1); CARBON DIOXIDE 28 MMOL/L (21-32); CHLORIDE 106 MMOL/L (98-107); CREATININE 1.2 MG/DL (0.55-1.30); POTASSIUM 4.8 MMOL/L (3.5-5.1); SODIUM 142 MMOL/L (136-145)
--- NOTE | 2019-03-13 14:10 | Emergency Room Report ---
History of Present Illness General Chief Complaint: General Complaint Source: Medical Record, EMS Present Illness HPI This patient presents from a group home facility for concern of low blood pressure. The patient's blood pressure was taken by staff at the facility and noted that it was low. The patient has severe dementia and encephalopathy and is confused with nonsensical speech at baseline. The patient is unable to give any type of history. There is no report of other symptoms such as nausea, vomiting, diarrhea, fever. History of present illness is limited. Allergies: Coded Allergies: No Known Allergies (Unverified , 03/01/17) Patient History Past Medical History: see triage record, old chart reviewed, HTN, dementia, seizures Past Surgical History: other - L. hip replacement Social History: Denies: smoking, alcohol use, drug use Reviewed Nursing Documentation: PMH: Agreed; PSxH: Agreed Nursing Documentation-PMH Past Medical History: No History, Except For Hx Hypertension: Yes Hx COPD: Yes Hx Cancer: No Hx Dementia: Yes Review of Systems All Other Systems: negative except mentioned in HPI Physical Exam Vital Signs Date Time Temp Pulse Resp B/P (MAP) Pulse Ox O2 Delivery O2 Flow Rate FiO2 03/13/19 12:38 97.3 62 16 106/51 (69) 100 Room Air Sp02 EP Interpretation: reviewed, normal General Appearance: no apparent distress, alert, GCS 15, non-toxic Head: normocephalic, atraumatic Eyes: bilateral eye normal inspection ENT: hearing grossly normal, normal pharynx, no angioedema, normal voice Neck: normal inspection Respiratory: chest non-tender, lungs clear, normal breath sounds, no respiratory distress, no retraction, no accessory muscle use, speaking full sentences Cardiovascular #1: regular rate, rhythm, no edema Gastrointestinal: normal bowel sounds, non tender, soft, non-distended, no guarding, no rebound Rectal: deferred Musculoskeletal: normal range of motion Neurologic: alert, responsive, other - At baseline, non-sensical speech. Psychiatric: mood/affect normal Skin: other - See RN skin exam Medical Decision Making Diagnostic Impression: Primary Impression: UTI (urinary tract infection) Additional Impression: Lactic acidosis ER Course This patient had presented with hypotension per EMS. The patient was not hypotensive here in the emergency department. However he was found to have a urinary tract infection and a lactic acidosis. He was given broad-spectrum antibiotics and IV fluids. He will be admitted for IV antibiotics and observation and monitoring given the patient's age and the concern that he could decompensate rapidly. He is admitted for further evaluation and treatment. Laboratory Tests Test 03/13/19 13:10 White Blood Count 5.3 K/UL (4.8-10.8) Red Blood Count 4.62 M/UL (4.70-6.10) L Hemoglobin 13.9 G/DL (14.2-18.0) L Hematocrit 42.6 % (42.0-52.0) Mean Corpuscular Volume 92 FL (80-99) Mean Corpuscular Hemoglobin 30.0 PG (27.0-31.0) Mean Corpuscular Hemoglobin Concent 32.5 G/DL (32.0-36.0) Red Cell Distribution Width 12.9 % (11.6-14.8) Platelet Count 162 K/UL (150-450) Mean Platelet Volume 6.9 FL (6.5-10.1) Neutrophils (%) (Auto) 50.2 % (45.0-75.0) Lymphocytes (%) (Auto) 40.7 % (20.0-45.0) Monocytes (%) (Auto) 6.4 % (1.0-10.0) Eosinophils (%) (Auto) 2.4 % (0.0-3.0) Basophils (%) (Auto) 0.3 % (0.0-2.0) Urine Color Melina Urine Appearance Clear Urine pH 6.5 (4.5-8.0) Urine Specific [place] 1.015 (1.005-1.035) Urine Protein 2+ (NEGATIVE) H Urine Glucose (UA) Negative (NEGATIVE) Urine Ketones 1+ (NEGATIVE) H Urine Blood 3+ (NEGATIVE) H Urine Nitrite Negative (NEGATIVE) Urine Bilirubin 1+ (NEGATIVE) H Urine Ictotest Negative (NEGATIVE) Urine Urobilinogen 1 MG/DL (0.0-1.0) H Urine Leukocyte Esterase 1+ (NEGATIVE) H Urine RBC 10-15 /HPF (0 - 0) H Urine WBC 2-4 /HPF (0 - 0) Urine Squamous Epithelial Cells Occasional /LPF Urine Bacteria Occasional /HPF (NONE) Urine Mucus Moderate /LPF (NONE/OCC) H Sodium Level 142 MMOL/L (136-145) Potassium Level 4.8 MMOL/L (3.5-5.1) Chloride Level 106 MMOL/L (98-107) Carbon Dioxide Level 28 MMOL/L (21-32) Anion Gap 8 mmol/L (5-15) Blood Urea Nitrogen 18 mg/dL (7-18) Creatinine 1.2 MG/DL (0.55-1.30) Estimate Glomerular Filtration Rate mL/min (>60) Glucose Level 87 MG/DL (74-106) Lactic Acid Level 2.90 mmol/L (0.4-2.0) H Calcium Level 9.1 MG/DL (8.5-10.1) Total Bilirubin 0.5 MG/DL (0.2-1.0) Aspartate Amino Transferase (AST) 15 U/L (15-37) Alanine Aminotransferase (ALT) 16 U/L (12-78) Alkaline Phosphatase 96 U/L (46-116) Total Creatine Kinase 63 U/L (26-308) Creatine Kinase MB 0.9 NG/ML (0.0-3.6) Creatine Kinase MB Relative Index 1.4 Troponin I 0.000 ng/mL (0.000-0.056) Total Protein 7.8 G/DL (6.4-8.2) Albumin 3.5 G/DL (3.4-5.0) Globulin 4.3 g/dL Albumin/Globulin Ratio 0.8 (1.0-2.7) L EKG Diagnostic Results Rate: normal Rhythm: NSR ST Segments: no acute changes Rhythm Strip Diag. Results EP Interpretation: yes Rate: 60's Rhythm: NSR, no PVC's, other - PAC's Chest X-Ray Diagnostic Results Chest X-Ray Diagnostic Results : Chest X-Ray Ordered: Yes # of Views/Limited/Complete: 1 View Indication: Other EP Interpretation: Yes Interpretation: no consolidation, no effusion, no pneumothorax, no acute cardiopulmonary disease Impression: No acute disease Electronically Signed by: Lucina Manzano DO Last Vital Signs Date Time Temp Pulse Resp B/P (MAP) Pulse Ox O2 Delivery O2 Flow Rate FiO2 03/13/19 13:29 68 18 Room Air 03/13/19 13:28 97.3 139/75 100 Disposition: ADMITTED INPATIENT Condition: Stable Lucina Manzano DO Mar 13, 2019 14:10
[2019-03-13 14:18] LABS: ALANINE AMINOTRANSFERASE 16 U/L (12-78); ALBUMIN 3.5 G/DL (3.4-5.0); ALBUMIN/GLOBULIN RATIO 0.8 (1.0-2.7); ALKALINE PHOSPHATASE 96 U/L (46-116); ASPARTATE AMINO TRANSFERASE 15 U/L (15-37); BILIRUBIN,TOTAL 0.5 MG/DL (0.2-1.0); CKMB 0.9 NG/ML (0.0-3.6); CREATINE KINASE 63 U/L (26-308)
--- NOTE | 2019-03-13 14:32 | Diagnostic Imaging Report ---
Indication: Dyspnea Comparison: 03/01/2017 A single view chest radiograph was obtained. Findings: Small ill-defined density in the right lung base likely scarring was present previously. The heart is normal in size. There is no infiltrate. The bones are osteopenic. IMPRESSION: No acute disease
[2019-03-13] MEDS ORDERED: Meropenem 1 GM in NS 55 ML IVPB ONE (15:45)
[2019-03-13 15:47] VITALS: BP 129/66
--- NOTE | 2019-03-13 16:53 | NUR ---
ED Nurse Note: pt up to floor with manufacturers service representative and reed dipper now.
[2019-03-13 17:00] VITALS: BP 128/77
--- NOTE | 2019-03-13 17:00 | NUR ---
NURSE NOTES: Received report from KENRICK Ruiz @ ER. The patient's belongings checked with the patient and two nurses. The patient is stable without acute distress or shortness of breath. The patient's vital signs were as follows: blood pressure of 128/77 and pulse of 71 and refused body temperature and SpO2 check. The patient's skin is intact upon assessment. Medication reconciliation, VRE, CRE, and MRSA swabs completed, and EKG completed @ER. The primary nurse was not able to obtain medical, surgical, allergy, and social history since the patient is confused and unable to answer question in a proper manner. The patient has R FA 20G SL that is intact and patent. Medical record brought from [facility] reviewed. Dr. Glaser at the bedside assessed the patient. Communicated with Dr. Glaser and he will put admission order. Will continue plan of care.
--- NOTE | 2019-03-13 17:30 | NUR ---
NURSE NOTES: Called Dr. Glaser regarding admission order again. Per Dr. Glaser, he will put the admission order as soon as possible. Will wait for admission order. Will continue plan of care.
--- NOTE | 2019-03-13 19:00 | NUR ---
HAND-OFF: Report given to KENRICK Lindsay. The patient is confused and tries to get out from the bed. The patient is stable in terms of physical symptoms and vital signs. The patient's bed in the lowest position, call light in reach, and strict fall and aspiration precaution reinforced. Still awaiting for admission order from . IV site intact and patent. Endorsed plan of care.
[2019-03-13 20:00] VITALS: BP 121/57
--- NOTE | 2019-03-13 20:00 | NUR ---
NURSE NOTES: Notified Dr. Glaser regarding patient's agitation, climbing out of bed both by phone and text. Requested orders for admission and something to calm him down. No response.
--- NOTE | 2019-03-13 20:10 | NUR ---
NURSE NOTES: Patient throwing blankets off the bed, moving around in bed, legs over side rails, attempting to get out of bed, pulling off pvc monitor and gowns, not redirectable. Received call back from Dr. lGaser and orders for bilateral soft wrist restraints. Informed him that we are still waiting for admission orders. Dr. Glaser stated he already put it in. Verified with another nurse (Lillian CHOUDHARY) that there are no orders. Dr. Glaser stated to continue all meds from nursing facility, continue zosyn only, no vancomycin. Full code, regular diet, NS at 75ml/hr.
--- NOTE | 2019-03-13 20:30 | History and Physical Report ---
DATE OF ADMISSION: 03/13/2019 REASON FOR ADMISSION: Lactic acidosis. HISTORY OF PRESENT ILLNESS: This is an 89-year-old male patient of Dr. Jonathan Mendez, resident of the long term. He was in his usual state of health until today when he apparently was found to have some hypertension for which he was brought to the emergency room of [facility] for further evaluation. In the emergency room, he has never had any signs of hypotension. However, he apparently had some degree of pyuria with some lactic acidosis. White count was not elevated and was given some meropenem in the emergency room and was given some IV fluids. His lactic acid came down from 2.9 to 1.5. He is a demented shivam and he is not able to give me a very fruitful history. PAST MEDICAL HISTORY: Significant for organic brain syndrome, hypertensive cardiovascular disease, deafness, and hyperlipidemia. MEDICATIONS: Prior to admission has been Tylenol, baby aspirin, Plavix, Depakote, sertraline, lorazepam, heparin subcutaneous, vitamin D as well as Namenda, and Aricept. ALLERGIES: NKDA. SOCIAL HISTORY: Unable to obtain. FAMILY HISTORY: Noncontributory. REVIEW OF SYSTEMS: Impossible since he is not able to give me much history. PHYSICAL EXAMINATION: GENERAL: He does not seem to be in much acute distress. VITAL SIGNS: Blood pressure is 120/70, pulse of 83, respirations 17, and temperature 96.4 degrees. HEENT: Head is atraumatic. Eyes, pupils reactive to light. No evidence of papilledema. Ears, canals are clear. Tympanic membranes are intact. Nose, nares are patent without any nasal discharge. Throat without inflammation or exudate. NECK: Supple. Jugular venous distention is low normal. No cervical adenopathy. No thyromegaly. HEART: Regular rhythm. No gallop. LUNGS: Decreased air excursion bilaterally. ABDOMEN: Supple. Bowel sounds positive. No hepatosplenomegaly. EXTREMITIES: Lower extremities shows no cyanosis or clubbing. No pedal edema. NEUROLOGICAL: Cranial nerves are intact. He is disoriented x3. No focal neurological deficit. LABORATORY DATA: Shows WBC of 5.3, hemoglobin is 13.9, hematocrit 42.6, and platelets of 162,000. Sodium is 142, potassium 4.8, chloride 106, carbon dioxide 28, BUN is 18, creatinine is 1.2, and calcium 9.1. Urinalysis has showed evidence of 2+ protein, specific gravity 1.015, 10 to 15 RBCs, and 2 to 4 WBCs per high-powered field. Unfortunately, urine was sent for culture. IMPRESSION: 1. He might have some urinary tract infection. 2. Some degree of dehydration. 3. Lactic acidosis. PLAN: We are going to admit. He is going to be started on Zosyn 3.375 g IV q.8 h. IV fluids with normal saline at 75 mL an hour is going to be continued and we will follow him clinically at this point. Edin Glaser M.D. DR: Piper JOB#: [id number] CC:
[2019-03-13] MEDS ORDERED: Depakote 500mg tab ORAL SCH (21:00)
[2019-03-13] MEDS ORDERED: OLANZapine 2.5mg tab ORAL SCH (21:00)
--- NOTE | 2019-03-13 22:00 | NUR ---
NURSE NOTES: Patient still agitated, uncooperative, pulling on restraints, moving around in bed.
[2019-03-13] MEDS ORDERED: DEPAKOTE ER500 MG ORAL (22:07)
[2019-03-13 22:38] VITALS: BP 156/75
[2019-03-13] MEDS ORDERED: Milk of Magnesia 30ml Ud ORAL PRN (22:45)
[2019-03-13] MEDS ORDERED: HYDROcodone/Acetamin 5/325 tab ORAL PRN (22:45)
[2019-03-13] MEDS: Depakote ER 500mg tab ORAL SCH (22:57)
[2019-03-13] MEDS: Tamsulosin 0.4mg cap ORAL SCH (23:02)
[2019-03-13] MEDS: Piperacillin/Tazobactam 3.375 GM in NS 110 ML IVPB SCH (23:03)
[2019-03-14] VITALS: BP 143/66
--- NOTE | 2019-03-14 01:06 | NUR ---
NURSE NOTES: Patient has eyes closed but still grabbing side rails with his right hand and occasionally shaking it.
--- NOTE | 2019-03-14 01:59 | NUR ---
NURSE NOTES: Patient's arms still moving, tugging at restraints, holding on side rails.
[2019-03-14 04:00] VITALS: BP 154/81
[2019-03-14] MEDS ORDERED: Fleet's Enema 133ml RECTAL PRN (04:45)
[2019-03-14] MEDS: Piperacillin/Tazobactam 3.375 GM in NS 110 ML IVPB SCH ×2 (05:14→14:28)
--- NOTE | 2019-03-14 07:10 | NUR ---
NURSE NOTES: Patient's eyes closed. Occasional movements on the arm but no attempts at pulling tubes yet. Restraints off since 0600. Will continue to monitor. Bed in low position, locked, bed alarm on, call light within reach.
--- NOTE | 2019-03-14 07:57 | NUR ---
NURSE NOTES: Patient received from Neftali Shultz. Pt sleeping at this time. RR even and unlabored on RA. Restraints taken off at this moment. Will assess if patient is ready for them to be d/ch once he's awake. Bed low and locked. Call light within reach . Will continue to monitor.
[2019-03-14 08:00] VITALS: BP 147/92
[2019-03-14] MEDS ORDERED: Sertraline 50mg tab ORAL SCH (09:00)
[2019-03-14] MEDS: Docusate 100mg cap ORAL SCH ×2 (09:00→09:31)
[2019-03-14] MEDS: Aspirin EC 81mg tab ORAL SCH ×2 (09:00→09:31)
[2019-03-14] MEDS ORDERED: Depakote ER 500mg tab ORAL SCH (09:00)
[2019-03-14] MEDS: Heparin 5000 units/ml inj SUBQ SCH ×2 (09:00→09:41)
[2019-03-14] MEDS: Tamsulosin 0.4mg cap ORAL SCH ×2 (09:00→09:31)
[2019-03-14] MEDS: Depakote ER 500mg tab ORAL SCH ×2 (09:00→09:31)
[2019-03-14] MEDS ORDERED: Memantine 10mg tab ORAL SCH (09:00)
[2019-03-14 12:00] VITALS: BP 133/63
--- NOTE | 2019-03-14 15:20 | Cardiology Report ---
APPROVED REPORT EKG Measurement Heart [id number] CO [id number] Normal sinus rhythm Possible septal infarct, age undetermined Abnormal ECG
--- NOTE | 2019-03-14 15:54 | NUR ---
NURSE NOTES: Received report from KENRICK Salguero. PT in bed, awake, confused, rambling, disoriented except to self, no apparent distress noted, respirations regular and unlabored, bed in lowest position, call light within reach, bed alarm on.
--- NOTE | 2019-03-14 15:56 | NUR ---
HAND-OFF: Report given to Haydee CHOUDHARY. Patient stable. Zosyn infusing.
[2019-03-14 16:00] VITALS: BP 143/79
--- NOTE | 2019-03-14 16:02 | NUR ---
NURSE NOTES: Dr. Glaser here to evaluated pt, ordered DC of pt back to [facility]
[2019-03-14] MEDS ORDERED: LEVAQUIN500 MG ORAL (16:09)
--- NOTE | 2019-03-14 16:15 | NUR ---
CASE MANAGEMENT: INITIAL REVIEW 89 YO M TAMMIE FROM [facility] CC: HYPOTENSION PMHx: HTN. COPD. DEMENTIA. SI:UTI. LACTIC ACIDOSIS. T 97.3 HR 62 RR 16 B/P 106/51 SATS 100% ON RA LABS: LACTIC ACID 2.9 UA (+PROTEIN, KETONES, BLOOD, BILIRUBIN, UROBILINOGEN, LEUKS, MUCUS) IS: 2400 mL NS BOLUS X1 PATIENT ADMITTED TO TELE 03/13/2019 @ 1530 DCP: PATIENT TO BE DISCHARGED TO SNF ONCE MEDICALLY CLEARED. Addendum: 03/14/19 at 1920 by Aviav Ulrich INTERQUAL
--- NOTE | 2019-03-14 16:16 | General Progress Note ---
Assessment/Plan Assessment/Plan: ? UTI Euvolemiic Dementia Plan: Will D/C back to SNF with Levaquin 500 mg po QD x 10 days Subjective Allergies: Coded Allergies: No Known Allergies (Unverified , 03/01/17) Subjective Unfortunately ther Urine Cx was not sent off, no fever, nio WBC elevation Objective Last 24 Hour Vital Signs Date Time Temp Pulse Resp B/P (MAP) Pulse Ox O2 Delivery O2 Flow Rate FiO2 03/14/19 12:00 97.1 57 20 133/63 (86) 99 03/14/19 12:00 54 03/14/19 09:31 66 147/92 03/14/19 09:00 Room Air 03/14/19 08:00 58 03/14/19 08:00 96.9 66 20 147/92 (110) 100 03/14/19 04:00 96.0 60 18 154/81 (105) 96 03/14/19 04:00 80 03/14/19 00:00 96.1 56 16 143/66 (91) 95 03/14/19 00:00 56 03/13/19 22:38 61 156/75 (102) 03/13/19 21:00 Room Air 03/13/19 21:00 61 156/75 03/13/19 20:00 97.7 65 18 121/57 (78) 95 03/13/19 18:07 Room Air 03/13/19 17:00 71 18 128/77 (94) 71 03/13/19 16:38 97.3 70 19 129/66 100 Room Air Intake and Output 03/13/19 03/14/19 18:59 06:59 Intake Total 2400 ml 485 ml Balance 2400 ml 485 ml IV Total 2400 ml 485 ml # Voids 1 4 Laboratory Tests 03/13/19 16:20: Lactic Acid Level 1.50 Height (Feet): 5 Height (Inches): 8.00 Weight (Pounds): 175 General Appearance: WD/WN, no apparent distress EENT: PERRL/EOMI Neck: non-tender, normal alignment Cardiovascular: normal peripheral pulses, regular rhythm Respiratory/Chest: chest wall non-tender, lungs clear Abdomen: normal bowel sounds, non tender Extremities: normal range of motion Neurologic: 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
--- NOTE | 2019-03-14 16:59 | NUR ---
NURSE NOTES: Called report to KENRICK Shaikh at [facility]
--- NOTE | 2019-03-14 17:05 | NUR ---
Dr Glaser came and discharge patient back to same SNF, called [facility] and spoke to Hawa and notified that pt is coming back to their facility, notified Rosalina sister and aware that pt is going back to [facility], [facility] was called and notified of transfer and ETA [id number].
--- NOTE | 2019-03-14 18:29 | NUR ---
HAND-OFF: Report given to KENRICK Shaikh at [facility] earlier today. Pt discharge back to [facility] with all belongings, IV removed intact, ID band removed, tele box returned, pt is stable for discharge
[2019-03-14] MEDS ORDERED: Sennosides 8.6mg tab ORAL SCH (21:00)
--- NOTE | 2019-03-14 21:45 | Discharge Summary ---
DATE OF ADMISSION: 03/13/2019 DATE OF DISCHARGE: 03/14/2019 DIAGNOSES OF DISCHARGE: 1. Evidence of lactic acidosis, which might have been caused by some dehydration, however, underlying urinary tract infection is not completely excluded. 2. Dementia. 3. Hypertension. 4. Resolution of the lactic acidosis. HISTORY AND PHYSICAL AND HOSPITAL COURSE: For details, please refer to the History and Physical dictated in the chart. This is an 89-year-old male, resident of a care home, initially was sent for apparently some hypotension to the emergency room of [facility], however, he never had any hypotension. When he came to the ER, all the laboratories looked okay. There was no leukocytosis. Urinalysis showed evidence of 2 to 4 wbc's per high-power field. Urine culture unfortunately was sent off. He was given some meropenem in the emergency room and some intravenous fluid was given. He was admitted overnight for observation. Intravenous fluid was given and he was started on Zosyn 3.375 g IV q.8 hours. Lactic acid from 2.9 initially came down to about 1.5. He is still very confused and is not able to give much history. On physical examination, he did not seem to be in any fluid overload. At this point, he is euvolemic by the time of discharge. For the sake of safety, we put him on some Levaquin 500 mg p.o. daily for a total of 10 more days in order to treat possible UTI that he might have had. As I mentioned unfortunately urine culture was not sent off in the emergency room before the antibiotic was given. Follow up will be with Dr. Jonathan Mendez. Time spent to arrange for discharge on this gentleman was about 45 minutes. Edin Glaser M.D. DR: TENISHA JOB#: [id number] CC:
[2019-03-15] MEDS ORDERED: Aspirin Baby 81mg ORAL SCH (09:00)
[2019-03-15] MEDS ORDERED: Docusate 100mg/10ml Liq ORAL SCH (09:00)
[2019-03-16] MEDS ORDERED: Vitamin D 50,000 units cap ORAL SCH (09:00)
== END 2019-03-14 18:38 | DRG 690 ==
LOC: EDBD 12:37 → EMR 13:10 → 2E 15:30 → EDBEDREQ 15:55 → 2E 17:25
DX: N39.0 Urinary tract infection, site not specified (principal); E87.2 Acidosis; E86.0 Dehydration; F09 Unspecified mental disorder due to known physiological condition; H91.90 Unspecified hearing loss, unspecified ear; E78.5 Hyperlipidemia, unspecified; Z79.02 Long term (current) use of antithrombotics/antiplatelets; Z79.82 Long term (current) use of aspirin; F03.90 Unspecified dementia, unspecified severity, without behavioral disturbance, psychotic disturbance, mood disturbance, and anxiety; I11.9 Hypertensive heart disease without heart failure
CPT/HCPCS: 36415; 71045; 80053; 81003; 82550; 82553; 83605; 84484; 85025; 87040; 87081; 93005; 96361; 96365; 99285